=== PATIENT | female | born 1950 | race Caucasian/White ===

== ENCOUNTER → 2017-07-25 | Outpatient (CLI) | payer MEDICARE ==
--- NOTE | 2017-07-25 14:29 | XR ---
EXAMINATION TYPE: XR chest 2V DATE OF EXAM: 07/25/2017 COMPARISON: NONE HISTORY: COPD, J44.9 TECHNIQUE: Frontal and lateral views of the chest are obtained. FINDINGS: There is no focal air space opacity, pleural effusion, or pneumothorax seen. The cardiac silhouette size is within normal limits, size somewhat accentuated by rotation. Multilevel spondylo sis present within the thoracic spine. There may be a spinal curvature, patient is rotated. The osseo us structures are intact. IMPRESSION: No acute cardiopulmonary process.
== END | disposition home or self-care (01) ==
LOC: RADXRMAIN 12:44
PROVIDERS: ATTEND Family Medicine
DX: J44.9 Chronic obstructive pulmonary disease, unspecified (principal)
CPT/HCPCS: 71020

== ENCOUNTER → 2017-09-20 | Outpatient (CLI) | payer MEDICARE ==
--- NOTE | 2017-09-21 11:54 | MM ---
Reason for exam: screening (asymptomatic). Last mammogram was performed 1 year and 1 month ago. History: Patient is postmenopausal and history of other cancer. Family history of breast cancer in maternal cousin. Core biopsy of the right breast. Took hormonal contraceptives beginning at age 22. Physical Findings: A clinical breast exam by your physician is recommended on an annual basis and results should be correlated with mammographic findings. MG 3D Screening Mammo W/Cad Bilateral CC and MLO view(s) were taken. Prior study comparison: August 30, 2016, bilateral MG 3d screening mammo w/cad. November 04, 2014, bilateral MG screening mammo w CAD. The breast tissue is heterogeneously dense. This may lower the sensitivity of mammography. Previous mammotome biopsy in the right breast. No significant changes when compared with prior studies. ASSESSMENT: Benign, BI-RAD 2 RECOMMENDATION: Routine screening mammogram of both breasts in 1 year.
== END ==
LOC: RADMAMWWP 09:47
PROVIDERS: ATTEND Family Medicine
DX: Z12.31 Encounter for screening mammogram for malignant neoplasm of breast (principal)
CPT/HCPCS: 77063; G0202

== ENCOUNTER → 2017-10-11 | Outpatient (CLI) | payer MEDICARE ==
--- NOTE | 2017-10-11 19:26 | PN ---
PROGRESS NOTE DATE OF SERVICE: 10/11/2017. 67-year-old lady who has been [facility] for treatment of obstructive sleep apnea-hypopnea syndrome. Patient continued to use her CPAP equipment every night without significant problems related to mask, pressure or humidification. She sleeps better than before treatment with CPAP. [place] Sleepiness Scale today is 6. I checked CPAP unit. Usage for the last month is 28/30 nights, 23/30 nights more than 4 hours. Average usage 5.9 hours. Leak is 6 L/minute which is normal range. CPAP pressure is 11 cm of water. Apnea-hypopnea index is 7.0 with central apnea index 3.3, total apnea index 5.1. MEDICATIONS: Baby aspirin, glucosamine, calcium supplement, stool softener, vitamin D, fish oil. PHYSICAL EXAM: GENERAL Patient in no distress. VITAL SIGNS BP 190/94 on the right arm and on the left arm is 197/77, HR 74, RR 16, height 5 foot 3, weight 228, BMI 40.3, temperature 97.9, oxygen saturation on room air 96%. HEENT PERRLA, EOMI, evaluation of oropharynx showed extremely low position of soft palate. NECK Supple, no JVD. Thyroid is not palpable. LUNGS Clear to percussion and to auscultation. Good air exchange. No wheezing or rhonchi. HEART S1, S2 regular. No murmurs, gallops, or rubs. ABDOMEN Slightly obese. Soft and nontender. Bowel sounds are present. No organomegaly appreciated. EXTREMITIES No clubbing or cyanosis. 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 Cranial nerves 2 to 7 intact. There is no fasciculation or atrophy. noted. No focal deficits observed. IMPRESSION: 1. Obstructive sleep apnea-hypopnea syndrome. Patient demonstrated good compliance with treatment benefitting from treatment. 2. Mild obesity. Patient increased her weight about 4 pounds comparing to the previous visit. 3. History of hypertension, increased blood pressure today in the office. 4. History of bilateral knee arthritis. 5. Status post left knee arthroscopic surgery. 6. Right hip problems. 7. Status post surgical treatment for cataract bilaterally. PLAN: 1. Continue treatment with CPAP every night. 2. Losing weight. 3. Sleep hygiene with regular time in bed for at least 8 hours. 4. Low-sodium diet. 5. Follow up with primary care physician for monitoring of blood pressure. Thank you very much for allowing me to participate in management of your patient. Sincerely, Bharath Resendiz MD, PhD, FAASM Diplomat of [place] [employer] [place] [employer] [facility] [place] MIA / OTTO: [id number] /
== END ==
LOC: SLEEP 16:24
PROVIDERS: ATTEND Internal Medicine
DX: G47.33 Obstructive sleep apnea (adult) (pediatric) (principal); E66.9 Obesity, unspecified; I10 Essential (primary) hypertension; M17.0 Bilateral primary osteoarthritis of knee; Z98.890 Other specified postprocedural states; Z79.899 Other long term (current) drug therapy; Z79.82 Long term (current) use of aspirin

== ENCOUNTER → 2018-02-05 | Outpatient (CLI) | payer MEDICARE ==
--- NOTE | 2018-02-06 07:43 | CTL ---
EXAMINATION TYPE: CT Low Dose Lung DATE OF EXAM ORDERED: 02/05/2018 COMPARISON: None HISTORY: . Low Dose CT Lung Screening CT DLP: 131.[address] CTDI: 3.5 mGy IV CONTRAST USED: None. SCREENING VISIT: First visit COMPARISON: None. TECHNIQUE: Low dose computed tomography scan was performed through the chest at 1 millimeter thick sections and reconstructed images in the coronal plane at [address] DIAGNOSTIC QUALITY: Satisfactory FINDINGS: LUNG NODULES: Not presentLeft lung: no nodules identified.Right lung: no nodules identified. LUNGS: COPD: Severity: Mild Fibrosis: Severity: Mild basilar subpleural fibrosis. Lymph nodes: None Other findings: None RIGHT PLEURAL SPACE: Effusion: None Calcification: None Thickening: None Pneumothorax: None LEFT PLEURAL SPACE: Effusion: None Calcification: None Thickening: None Pneumothorax: None HEART: Heart Size: Mildly enlarged Coronary calcification: Mild Pericardial effusion: None OTHER FINDINGS: Upper abdomen: No significant abnormality Bony thorax: Degenerative changes Supraclavicular region: No significant abnormality Other: No significant abnormality IMPRESSION: No concerning pulmonary nodules identified. FOLLOW UP CT CHEST RECOMMENDATION: Follow-up screening in one year CT LUNG RAD: Negative LUNG RAD CATEGORY 1 MTDD
== END | disposition home or self-care (01) ==
LOC: RADCTMAIN 17:10
PROVIDERS: ATTEND Family Medicine
DX: Z09 Encounter for follow-up examination after completed treatment for conditions other than malignant neoplasm (principal); Z87.891 Personal history of nicotine dependence

== ENCOUNTER → 2018-09-18 | Outpatient (CLI) | payer MEDICARE ==
--- NOTE | 2018-09-18 11:54 | ECHOF ---
Referral Reason:R06.000 Dyspnea MEASUREMENTS -------- HEIGHT: 162.6 cm WEIGHT: 104.3 kg BP: 140/64 RVIDd: 2.8 cm (< 3.3) IVSd: 1.1 cm (0.6 - 1.1) LVIDd: 3.9 cm (3.9 - 5.3) LVPWd: 1.1 cm (0.6 - 1.1) IVSs: 1.6 cm LVIDs: 2.5 cm LVPWs: 1.5 cm LA Diam: 3.5 cm (2.7 - 3.8) LAESV Index (A-L): 30.60 ml/m Ao Diam: 3.3 cm (2.0 - 3.7) AV Cusp: 2.0 cm (1.5 - 2.6) MV EXCURSION: 15.965 mm (> 18.000) MV EF SLOPE: 28 mm/s (70 - 150) EPSS: 0.3 cm MV E Jacob: 0.65 m/s MV DecT: 319 ms MV A Jacob: 0.94 m/s MV E/A Ratio: 0.70 FINDINGS -------- Sinus rhythm. This was a technically good study. The left ventricular size is normal. There is borderline concentric left ventricular hypertrophy. Overall left ventricular systolic function is normal with, an EF between 50 - 60 % The right ventricle is normal in size. LA is midly dilated 29-33ml/m2. The right atrium is normal in size. There is mild aortic valve sclerosis. The mitral valve leaflets are mildly thickened. Mild mitral annular calcification present. The tricuspid valve appears structurally normal. There is no pulmonic regurgitation present. The aortic root size is normal. Normal inferior vena cava with normal inspiratory collapse consistent with estimated right atrial pre ssure of 5 mmHg. There is no pericardial effusion. CONCLUSIONS -------- 1. Sinus rhythm. 2. This was a technically good study. 3. The left ventricular size is normal. 4. There is borderline concentric left ventricular hypertrophy. 5. Overall left ventricular systolic function is normal with, an EF between 50 - 60 % 6. The right ventricle is normal in size. 7. LA is midly dilated 29-33ml/m2. 8. The right atrium is normal in size. 9. There is mild aortic valve sclerosis. 10. The mitral valve leaflets are mildly thickened. 11. Mild mitral annular calcification present. 12. The tricuspid valve appears structurally normal. 13. There is no pulmonic regurgitation present. 14. The aortic root size is normal. 15. Normal inferior vena cava with normal inspiratory collapse consistent with estimated right atrial pressure of 5 mmHg. 16. There is no pericardial effusion. SPECIAL WARFARE BOAT OPERATOR: Dayana Carlton RDCS
== END | disposition home or self-care (01) ==
LOC: RADECHMAIN 11:12
PROVIDERS: ATTEND Family Medicine
DX: I08.0 Rheumatic disorders of both mitral and aortic valves (principal)
CPT/HCPCS: 93306

== ENCOUNTER → 2018-09-24 | Outpatient (CLI) | payer MEDICARE ==
[2018-09-24 10:24] LABS: HCT 37.3 % (34.0-46.0); HGB 12.2 gm/dL (11.4-16.0); MCH 30.1 pg (25.0-35.0); MCHC 32.8 g/dL (31.0-37.0); MCV 91.8 fL (80.0-100.0); Mean Platelet Volume 6.4; Platelet Count 214 k/uL (150-450); RBC 4.07 m/uL (3.80-5.40); RDW 12.9 % (11.5-15.5); WBC 3.2 k/uL (3.8-10.6)
[2018-09-24 10:39] LABS: Albumin 3.8 g/dL (3.5-5.0); Appearance,Urine Clear (Clear); Bilirubin,Urine Negative (Negative); Blood,Urine Negative (Negative); Calcium 9.8 mg/dL (8.4-10.2); Color,Urine Light Yellow; Glucose,Urine (UA) Negative (Negative); Ketones,Urine Negative (Negative); Leukocyte Esterase,Urine Negative (Negative); Nitrite,Urine Negative (Negative); PH, Urine 5.5 (5.0-8.0); Potassium 4.4 mmol/L (3.5-5.1); Protein,Urine Negative (Negative); Specific Gravity,Urine 1.013 (1.001-1.035); Total Bilirubin 0.4 mg/dL (0.2-1.3); Total Protein 6.6 g/dL (6.3-8.2); Urobilinogen,Urine <2.0 mg/dL (<2.0)
--- NOTE | 2018-09-24 11:20 | BD ---
EXAMINATION TYPE: Axial Bone Density DATE OF EXAM: 09/24/2018 COMPARISON: NONE CLINICAL HISTORY: Postmenopausal female Height: 63 IN Weight: 233 LBS FRAX RISK QUESTIONS: Secondary Osteoporosis: 3. Menopause before 45: YES AGE 42 TOTAL HYSTERECTOMY RISK FACTORS HISTORY OF: Active: YES Diet low in dairy products/other sources of calcium: YES Postmenopausal woman: AGE 42 MEDICATIONS: Additional Medications: VIT D, CALCIUM, HIGH BLOOD PRESSURE MEDS, GLUCOSAMINE, BABY ASPIRIN, CBD OIL DROPS EXAM MEASUREMENTS: Bone mineral densitometry was performed using the [employer] System. Bone mineral density as measured about the Lumbar spine is: ----- L1-L4(G/cm2): 1.870 T Score Values are as follows: ----- L2: 3.7 ----- L3: 5.9 ----- L4: 7.9 ----- L1-L4: 5.7 Bone mineral density BASELINE Bone mineral density about the R hip (g/cm2): 1.431 Bone mineral density about the L hip (g/cm2): 1.510 T Score values are as follows: -----R Neck: 2.8 -----L Neck: 3.4 -----R Total: 2.9 -----L Total: 3.9 Bone mineral density BASELINE IMPRESSION: Normal (Values between +1 and -1 indicate normal bone mass). Consider repeating this study in 5 year s or sooner if there is some new clinical indication. NOTE: T-SCORE=SD OF THE YOUNG ADULT MEAN.
[2018-09-24 20:57] LABS: Hemoglobin A1C 5.9 % (4.0-6.0)
--- NOTE | 2018-09-25 14:16 | MM ---
Reason for exam: screening (asymptomatic). Last mammogram was performed 1 year ago. History: Patient is postmenopausal and history of other cancer. Family history of breast cancer in maternal cousin. Core biopsy of the right breast. Took hormonal contraceptives beginning at age 22. Physical Findings: A clinical breast exam by your physician is recommended on an annual basis and results should be correlated with mammographic findings. MG 3D Screening Mammo W/Cad Bilateral CC and MLO view(s) were taken. XCCL view(s) were taken of the right breast. Prior study comparison: September 20, 2017, bilateral MG 3d screening mammo w/cad. August 30, 2016, bilateral MG 3d screening mammo w/cad. The breast tissue is heterogeneously dense. This may lower the sensitivity of mammography. There are benign appearing round calcifications bilaterally. Previous mammotome biopsy in the right breast. There is no discrete abnormality. ASSESSMENT: Benign, BI-RAD 2 RECOMMENDATION: Routine screening mammogram of both breasts in 1 year.
== END | disposition home or self-care (01) ==
LOC: RADMAMWWP 09:00
PROVIDERS: ATTEND Family Medicine
DX: Z12.31 Encounter for screening mammogram for malignant neoplasm of breast (principal); I10 Essential (primary) hypertension; Z79.899 Other long term (current) drug therapy; Z78.0 Asymptomatic menopausal state
CPT/HCPCS: 36415; 77063; 77067; 77080; 80053; 80061; 81003; 83036; 83880; 84443; 85027

== ENCOUNTER → 2019-09-01 | Outpatient (CLI) | payer MEDICARE ==
--- NOTE | 2019-09-01 15:24 | CTL ---
EXAMINATION TYPE: CT Low Dose Lung DATE OF EXAM ORDERED: 09/01/2019 HISTORY: Personal tobacco use. Lung cancer screening CT DLP: 90.[address] CTDI: 2.4 mGy Automated exposure control for dose reduction was used. SCREENING VISIT: Subsequent follow-up COMPARISON: 02/05/2018 TECHNIQUE: Low dose computed tomography scan was performed through the chest at 1 mm thick sections a nd reconstructed images in the coronal plane at [address] DIAGNOSTIC QUALITY: Limited, but interpretable FINDINGS: LUNG NODULES: None. LUNGS: COPD: Severity: None Fibrosis: Severity: None Lymph nodes: Non- Other findings: None RIGHT PLEURAL SPACE: Effusion: None Calcification: None Thickening: None Pneumothorax: None LEFT PLEURAL SPACE: Effusion: None Calcification: None Thickening: None Pneumothorax: None HEART: Heart Size: Normal Coronary calcification: Moderate Pericardial effusion: None OTHER FINDINGS: Upper abdomen: Normal Bony thorax: Normal Supraclavicular region: Normal Other: Ascending thoracic aorta at the level the main pulmonary artery measures 3.6 cm. The main pul monary artery at the bifurcation measures 3.8 cm. IMPRESSION: 1. No suspicious interval change. 2. Mild prominence of the pulmonary artery relation to the aorta may be present. Correlate for pulmon natalie hypertension. FOLLOW UP CT CHEST RECOMMENDATION: CT of the low-dose chest CT LUNG RAD: 1
== END ==
LOC: RADCTMAIN 12:24
PROVIDERS: ATTEND Family Medicine
DX: Z12.2 Encounter for screening for malignant neoplasm of respiratory organs (principal); Z87.891 Personal history of nicotine dependence

== ENCOUNTER → 2019-09-25 | Outpatient (CLI) | payer MEDICARE ==
--- NOTE | 2019-09-26 10:47 | MM ---
Reason for exam: screening (asymptomatic). Last mammogram was performed 1 year ago. History: Patient is postmenopausal and history of other cancer. Family history of breast cancer in maternal cousin. Core biopsy of the right breast. Took hormonal contraceptives beginning at age 22. Physical Findings: A clinical breast exam by your physician is recommended on an annual basis and results should be correlated with mammographic findings. MG 3D Screening Mammo W/Cad Bilateral CC and MLO view(s) were taken. Prior study comparison: September 24, 2018, bilateral MG 3d screening mammo w/cad. September 20, 2017, bilateral MG 3d screening mammo w/cad. The breast tissue is heterogeneously dense. This may lower the sensitivity of mammography. Stable benign calcifications. There is no discrete abnormality. No significant changes when compared with prior studies. ASSESSMENT: Benign, BI-RAD 2 RECOMMENDATION: Routine screening mammogram of both breasts in 1 year.
== END | disposition home or self-care (01) ==
LOC: RADMAMWWP 10:38
PROVIDERS: ATTEND Family Medicine
DX: Z12.31 Encounter for screening mammogram for malignant neoplasm of breast (principal)
CPT/HCPCS: 77063; 77067

== ENCOUNTER 2020-05-03 20:15 | Emergency (ER) | payer MEDICARE ==
[2020-05-03 20:27] VITALS: RESP 18; TEMP 98.2
--- NOTE | 2020-05-03 21:10 | ED ---
Eye Problem HPI - General Chief complaint: Eye Problems Stated complaint: Eye Problems Time Seen by Provider: 05/03/20 20:34 Source: patient Mode of arrival: ambulatory Limitations: no limitations - History of Present Illness Initial comments: 70-year-old female presenting for changes in vision. Patient states around 6:30-7 PM this evening after raking leaves she developed a half-woodard reddish object in the middle of her vision hanging from the top. She states it became bigger and longer, changing and moving in shape/location. Denies focalized, fixe d deficit. Patient states she had no flashes of light. She states it didnt seem like a float,but almost was the color of blood. Ptient denies headache, vomiting, chest pain, palpatation, patient denies vision loss, denies experiencing this in the past. Denies halos around lights or blurred vision. patient states that the symptoms resolved shortly after and are not currently present. Patient denies weakness of the LE or UE, sensation deficits, speech changes or any other noted abnormalities/complaints. Patient's son is a PA and recommended she come to the ER for evaluation> Remaining ROS (-). - Related Data Allergies Allergy/AdvReac Type Severity Reaction Status Date / Time morphine Allergy Rash/Hives Verified 05/03/20 20:27 shellfish derived [Shellfish] Allergy Rash/Hives Verified 05/03/20 20:27 Review of Systems ROS Statement: Those systems with pertinent positive or pertinent negative responses have been documented in the HPI. ROS Other: All systems not noted in ROS Statement are negative. Past Medical History Past Medical History: COPD, Hypertension History of Any Multi-Drug Resistant Organisms: None Reported Past Surgical History: Bowel Resection, Section, Cholecystectomy, Hysterectomy Additional Past Surgical History / Comment(s): catarct surgery Past Psychological History: No Psychological Hx Reported Smoking Status: Former smoker Past Alcohol Use History: Occasional Past Drug Use History: None Reported General Exam - General Exam Comments Initial Comments: General: The patient is awake and alert, in no distress Eye: +3 mm pupils are equal, round and reactive to light, extra-ocular movements are intact. No APD. No nystagmus. There is normal conjunctiva bilaterally. No signs of icterus. IOP 9OD, 10 OS. Ears, nose, mouth and throat: There are moist mucous membranes and no oral lesions. Full fundus examination Limited secondary to no dilation however there is no noted acute abnormalities of the retina. No barrett red fovea noted. No obvious detachment. VF intact to confrontation. Neck: The neck is supple, there is no tenderness or JVD. Cardiovascular: There is a regular rate and rhythm. No murmur, rub or gallop is appreciated Musculoskeletal: Normal ROM, no tenderness. Strength 5/5. Sensation intact. Pulses equal bilaterally 2+. Neurological: A&O x 3. CN II-XII intact, memory intact to immediately, intermediate and intermediate school teacher recall. Able to follow simple verbal. Able to name a common object (pen). High quality, labial (pa) and lingual (la) speech. Low quality posterior pharynx/larynx (ga) voice sounds. Able to express general knowledge (days in a week). No hemineglect or inattention noted. Finger agnosia (-) and spatially oriented. Light touch sensation present over the face, chest, abdomen, back, UE bilaterally, and LE bilaterally. Able to localize point during point localization b/l and extinction. No visible bulk atrophy, hypertrophy, fasciculations, or myoclonus of the UE or LE b/l. Full PROM in UE and LE b/l. Bilateral muscle strength 5/5 for the following muscles: deltoid, biceps, triceps, brachioradialis, wrist extensors/flexor, hip flexor, hip abductors/adductors, hamstrings, quadriceps, feet dorsiflexors/plantar flexors. Finger to nose, finger to the examiners finger, and heel to sharp coordinated and accurate b/l. Coordinated and even demonstration of hand flip, finger to thumb b/. Gait is coordinated and even in stride. (-) Romberg. (-) pronator drift. Skin: Skin is warm and dry and no rashes or lesions are noted. Psychiatric: Cooperative, appropriate mood & affect, normal judgment. Limitations: no limitations Course Vital Signs 05/03/20 20:16 Temperature 98.2 F Pulse Rate 76 Respiratory 18 Rate Blood Pressure 167/96 O2 Sat by Pulse 97 Oximetry Medical Decision Making - Medical Decision Making 70-year-old female presenting for transient visual change. Half woodard red appearance, "hanging from top". resolved. Patient has no obvious retinal abnormalities on exam. Patient VA intact, similar b/l. VF intact. Patient has history of HTN. Patient IOP WNL. Patient has no history of trauma. Patient has normal neurological examination. Normal rate, regular rhythm on pulse exam. Patient case discussed with manager social responsibility microsoft bi developer Dr. Samson and Justin who both felt this was retinal in nature and since resolved warranted urgent f/u in office tomorrow morning. Patient is agreeable to care plan and is askign for discharge at this time. patient discharged appearing well, no current symptoms. Disposition Clinical Impression: Change in vision Disposition: HOME SELF-CARE Condition: Good Instructions (If sedation given, give patient instructions): Retinal Hemorrhage (ED) Additional Instructions: Please use medication as discussed. Please follow-up with Dr. Anderson tomorrow at 10AM. Please return to emergency room if the symptoms increase or worsen or for any other concerns. Is patient prescribed a controlled substance at d/c from ED?: No Referrals: Tracie Centeno MD [Primary Care Provider] - 1-2 days Mendez Samson MD [STAFF PHYSICIAN] - 1-2 days Time of Disposition: 22:07
[2020-05-03 22:16] VITALS: BP 145/88; PULSE 73
== END 2020-05-03 22:16 | disposition home or self-care (01) ==
LOC: EC 20:15
DX: H53.9 Unspecified visual disturbance (principal); Z88.5 Allergy status to narcotic agent; Z91.013 Allergy to seafood; Z87.891 Personal history of nicotine dependence; Z98.42 Cataract extraction status, left eye; Z98.41 Cataract extraction status, right eye
CPT/HCPCS: 99284

== ENCOUNTER → 2021-06-01 | Outpatient (CLI) | payer MEDICARE ==
--- NOTE | 2021-06-01 13:54 | CTL ---
EXAMINATION TYPE: CT Low Dose Lung DATE OF EXAM ORDERED: 06/01/2021 COMPARISON: 09/01/2019 HISTORY: . Low Dose CT Lung Screening CT DLP: [address] CTDI: 4.09 mGy IV CONTRAST USED: None. SCREENING VISIT: First visit COMPARISON: None. TECHNIQUE: Low dose computed tomography scan was performed through the chest at 1 millimeter thick se ctions and reconstructed images in the coronal plane at [address] DIAGNOSTIC QUALITY: Satisfactory FINDINGS: LUNG NODULES: Not presentLeft lung: no nodules identified.Right lung: no nodules identified. LUNGS: COPD: Severity: None Fibrosis: Severity:None Lymph nodes: None Other findings: None RIGHT PLEURAL SPACE: Effusion: None Calcification: None Thickening: None Pneumothorax: None LEFT PLEURAL SPACE: Effusion: None Calcification: None Thickening: None Pneumothorax: None HEART: Heart Size: Mildly enlarged Coronary calcification: Mild Pericardial effusion: None OTHER FINDINGS: Upper abdomen: No significant abnormality Bony thorax: Degenerative changes Supraclavicular region: No significant abnormalityOther: No significant abnormalityI IMPRESSION: No suspicious nodules seen. FOLLOW UP CT CHEST RECOMMENDATION: Follow-up screening in one year CT LUNG RAD: LUNG RAD CATEGORY 1 negative
--- NOTE | 2021-06-02 07:34 | BD ---
EXAMINATION TYPE: Axial Bone Density DATE OF EXAM: 06/01/2021 COMPARISON: 09.24.2018 CLINICAL HISTORY: 71 YR OLD FEMALE.....ICD-10 CODE: Z78.0 POST MENOPAUSAL Height: 62.4 Weight: 222 FRAX RISK QUESTIONS: Secondary Osteoporosis: YES 3. Menopause before 45: YES, AT AGE 42 Current Tobacco Use: QUIT 10-12 YRS AGO RISK FACTORS HISTORY OF: History of Wrist Fracture: LT HAND, <40 YRS OLD Postmenopausal woman: YES, AT AGE 42 YRS OLD, TOTAL HYST Take estrogen and/or progesterone medications: IN THE PAST FOR SHORT TIME Frequent falls: STOOPED, SEVERE BACK PAIN Hyperparathyroidism: NO Adrenal Insufficiency: NO MEDICATIONS: Additional Medications: TRAMADOL, BP MEDS, VITAMINS, VIT D, ASPIRIN, CALCIUM, DIET CONTROLLED DIABETI C, Additional History: BACK PAIN, HYPERTENSION, DIET CONTROLLED DIABETIC, EXAM MEASUREMENTS: Bone mineral densitometry was performed using the [email or web address] System. Bone mineral density as measured about the Lumbar spine is: ----- L1-L4(G/cm2): 1.812 T Score Values are as follows: ----- L1: 5.6 ----- L2: 2.3 ----- L3: 3.8 ----- L4: 8.2 ----- L1-L4: 5.3 Bone mineral density has: Decreased -4.5% since study of: 09.24.2018 Bone mineral density about the R hip (g/cm2): 1.491 Bone mineral density about the L hip (g/cm2): 1.590 T Score values are as follows: -----R Neck: 3.9 -----L Neck: 4.3 -----R Total: 3.8 -----L Total: 4.6 Bone mineral density has: Increased 7.6% since study of: 09.24.2018 FRAX%s: THERE IS A 4.8% CHANCE FOR A MAJOR OSTEOPOROTIC FX AND A 0.0% FOR HIP......PROBABILITY FOR FX IN 10 YRS TIME IMPRESSION: Normal bone mineral density. NOTE: T-SCORE=SD OF THE YOUNG ADULT MEAN.
--- NOTE | 2021-06-02 10:01 | MM ---
Reason for exam: screening (asymptomatic). Last mammogram was performed 1 year and 8 months ago. History: Patient is postmenopausal and history of other cancer. Family history of breast cancer in maternal cousin. Core biopsy of the right breast. Took hormonal contraceptives beginning at age 22. Physical Findings: A clinical breast exam by your physician is recommended on an annual basis and results should be correlated with mammographic findings. MG 3D Screening Mammo W/Cad Bilateral CC and MLO view(s) were taken. Prior study comparison: September 25, 2019, bilateral MG 3d screening mammo w/cad. September 24, 2018, bilateral MG 3d screening mammo w/cad. The breast tissue is heterogeneously dense. This may lower the sensitivity of mammography. Stable benign calcifications. There is no discrete abnormality. No significant changes when compared with prior studies. ASSESSMENT: Benign, BI-RAD 2 RECOMMENDATION: Routine screening mammogram of both breasts in 1 year.
== END | disposition home or self-care (01) ==
LOC: RADMAMWWP 12:35
PROVIDERS: ATTEND Family Medicine
DX: Z12.31 Encounter for screening mammogram for malignant neoplasm of breast (principal); Z78.0 Asymptomatic menopausal state; Z85.3 Personal history of malignant neoplasm of breast
CPT/HCPCS: 71271; 77063; 77067; 77080

== ENCOUNTER → 2022-06-28 | Outpatient (CLI) | payer MEDICARE ==
--- NOTE | 2022-06-28 14:58 | CTL ---
EXAMINATION TYPE: CT Low Dose Lung DATE OF EXAM ORDERED: 06/28/2022 HISTORY: Z87.891PERSONAL HISTORY OF NICOTINE DEPENDENCE . Lung cancer screening CT DLP: 90.[address] CTDI: 2.4 mGy Automated exposure control for dose reduction was used. SCREENING VISIT: Follow-up COMPARISON: CT CT Low Dose Lung 06/01/2021, 09/01/2019. TECHNIQUE: Low dose computed tomography scan was performed through the chest at 1 mm thick sections a nd reconstructed images in multiple planes at 1 mm and [address] DIAGNOSTIC QUALITY: Satisfactory FINDINGS: LUNG NODULES: Stable left apex 2 mm pulmonary nodule. No new or enlarging pulmonary nodules. LUNGS: COPD: Severity: None Fibrosis: Severity: Mild basilar subpleural fibrosis. Lymph nodes: None Other findings: None RIGHT PLEURAL SPACE: Effusion: None Calcification: None Thickening: None Pneumothorax: None LEFT PLEURAL SPACE: Effusion: None Calcification: None Thickening: None Pneumothorax: None HEART: Heart Size: Mildly Enlarged Coronary Calcification: Moderate Pericardial Effusion: None OTHER FINDINGS: Upper abdomen: None Bony thorax: Degenerative changes of visualized spine. Supraclavicular region: None Other: Mild pulmonary artery prominence measuring up to 3.4 cm. This can be seen setting of pulmonary arterial hypertension. IMPRESSION: Stable 2 mm left apex pulmonary nodule. No new or enlarging pulmonary nodules. CT LUNG RAD AND CT CHEST RECOMMENDATION: Lung-Rad 2 Benign Appearance or Behavior: Continue annual sc reening with LDCT in 12 months. S Modifier (other clinically significant findings): None
--- NOTE | 2022-06-29 18:50 | MM ---
Reason for Exam: Screening (asymptomatic). Last mammogram was performed 1 year(s) and 1 month(s) ago. Patient History: Menarche at age 12. First Full-Term at age 21. Left ovary removed at age 42. Right ovary removed at age 42. Hysterectomy at age 42. Postmenopausal. Patient has history of breast feeding. Other cancer. Hormonal Contraceptives, from age 22 until age 30. Core Biopsy on the Right side. Maternal cousin had breast cancer. Risk Values: Carissa 5 year model risk: 1.9%. NCI Lifetime model risk: 4.6%. Prior Study Comparison: 09/20/2017 Bilateral Screening Mammogram, [facility]. 09/24/2018 Bilateral Screening Mammogram, [facility]. 09/25/2019 Bilateral Screening Mammogram, [facility]. 06/01/2021 Bilateral Screening Mammogram, [facility]. Tissue Density: The breast tissue is heterogeneously dense. This may lower the sensitivity of mammography. Findings: Analyzed By CAD. Microclip right breast from prior biopsy. A few small benign renal cyst calcifications on both sides. Chronic nodularity posterior right MLO view suggesting a low axillary tail lymph node. No significant change from prior exams. Overall Assessment: Benign, BI-RAD 2 Management: Screening Mammogram of both breasts in 1 year. 1. Patient should continue monthly self breast exams. 2. A clinical breast exam by your physician is recommended on an annual basis. 3. This exam should not preclude additional follow-up of suspicious palpable abnormalities. Electronically signed and approved by: Thea Varela M.D. Radiologist
== END | disposition home or self-care (01) ==
LOC: RADMAMWWP 13:41
PROVIDERS: ATTEND Family Medicine
DX: Z12.31 Encounter for screening mammogram for malignant neoplasm of breast (principal); R91.1 Solitary pulmonary nodule; Z87.891 Personal history of nicotine dependence
CPT/HCPCS: 71271; 77063; 77067

== ENCOUNTER → 2023-03-09 | Outpatient (CLI) | payer MEDICARE ==
--- NOTE | 2023-03-12 06:09 | MR ---
MRI CERVICAL SPINE: CLINICAL HISTORY: Neck pain, back pain, limited movement for 3 to 5 years. Degenerative disc disease and spinal stenosis per order TECHNIQUE: Multiplanar, multisequence imaging of the cervical spine is performed without IV contrast. COMPARISON: None. FINDINGS: Sagittal images of the cervical spine show the craniocervical junction to appear within nor mal limits. The cervical and upper thoracic spinal cord is normal in course, caliber, and signal. V ertebral alignment is anatomic. The vertebral body heights are normal. Mild to moderate disc space narrowing and anterior spurring C5-C6 level. The bone marrow signal intensity is within normal limits . Axial images show C2-C3 level to appear within normal limits. Axial images at C3-C4 level show uncovertebral facet degenerative changes causing mild bilateral neur al foraminal narrowing. Axial images at C4-C5 level show uncovertebral facet degenerative changes causing mild to moderate ri ght-sided neural foraminal narrowing. Axial images at C5-C6 levels with posterior spur disc complex effacing anterior thecal sac nearly up to ventral surface of spinal cord with uncovertebral facet degenerative change greater on the right c ausing moderate left and severe right-sided neural foraminal narrowing. Axial images at C6-C7 level show lobulated paracentral disc protrusion effacing the anterolateral the katty sac bilaterally and causing moderate to advanced bilateral neural foraminal narrowing. Axial images at C7-T1 level appear within normal limits. IMPRESSION: Multilevel degenerative change greatest at C5-C6 and C6-C7 levels as detailed above.
== END | disposition home or self-care (01) ==
LOC: RADMRIMAIN 06:28
PROVIDERS: ATTEND Orthopaedic Surgery
DX: M47.812 Spondylosis without myelopathy or radiculopathy, cervical region (principal); M50.30 Other cervical disc degeneration, unspecified cervical region; M48.062 Spinal stenosis, lumbar region with neurogenic claudication; M51.36 Other intervertebral disc degeneration, lumbar region; M48.02 Spinal stenosis, cervical region
CPT/HCPCS: 72141

== ENCOUNTER → 2023-03-13 | Outpatient (CLI) | payer MEDICARE ==
--- NOTE | 2023-03-13 08:46 | MR ---
EXAMINATION TYPE: MR lumbar spine wo con DATE OF EXAM: 03/13/2023 COMPARISON: NONE HISTORY: Low back pain, ddd TECHNIQUE: Multiplanar, multisequence imaging of the lumbar spine is performed without IV contrast. FINDINGS: Levoconvex scoliosis centered at L3 level. Straightened alignment on sagittal images with s light grade 1 retrolisthesis L2 on L3 and L4 on L5 and grade 1 anterolisthesis of L3 on L4. Vertebral body heights are maintained. There is multilevel disc desiccation with multilevel moderate disc spac e narrowing and multilevel vacuum disc phenomenon along with moderate anterior spurring. The conus m edullaris is normal in position and signal ending at superior L1 level. Posterior disc herniation at T10-T11 level mildly effaces anterior thecal sac sagittal image 11. Osseous hemangioma involving the L1 vertebra noted. Axial images at T12-L1 level show mild broad disc bulge with focal left paracentral/foraminal disc pr otrusion effacing the anterolateral thecal sac and causing mild left greater than right anterior infe rior neural foraminal narrowing. Mild to moderate facet arthropathy bilaterally is seen. Axial images at L1-L2 level show mild broad disc bulge and facet arthropathy bilaterally. Spinal jad l is preserved. Axial images at L2-L3 level shows spondylolisthesis with mild/moderate broad disc bulge and mild/mode rate right greater than left facet arthropathy. There is right lateral disc protrusion component. The re is some effacement of the right anterior thecal sac. There is mild right-sided neural foraminal na rrowing. Axial images at L3-L4 level show spondylolisthesis with mild to moderate facet arthropathy. There is mild broad disc bulge with right lateral disc protrusion component. There is mild left and moderate t o severe right-sided neural foraminal narrowing. There is encroachment of the extraforaminal right L3 nerve sagittal image 13 and 14 and axial image 15. Axial images at L4-L5 level show moderate broad-based disc bulge effacing the anterior thecal sac estelle ng with moderate facet arthropathy bilaterally effacing the lateral thecal sac. There is mild bilater al neural foraminal narrowing. Axial images at the L5-S1 level shows moderate to advanced broad disc bulge and mild facet arthropath y. There is mild effacement anterior thecal sac. There is severe left and moderate right-sided neural foraminal narrowing. Encroachment along the inferior aspect of the right L5 nerve sagittal image 16 and 4 prominent effacement of the left L5 nerve sagittal image 4. The paraspinal muscle bulk is fairly well maintained. IMPRESSION: Slight scoliosis. Multilevel spondylolisthesis and degenerative change in the lumbar spin e as detailed above
== END | disposition home or self-care (01) ==
LOC: RADMRIMAIN 07:24
PROVIDERS: ATTEND Orthopaedic Surgery
DX: M48.062 Spinal stenosis, lumbar region with neurogenic claudication (principal); M51.36 Other intervertebral disc degeneration, lumbar region; M50.30 Other cervical disc degeneration, unspecified cervical region; M43.16 Spondylolisthesis, lumbar region; M41.86 Other forms of scoliosis, lumbar region
CPT/HCPCS: 72148

== ENCOUNTER → 2023-03-28 | Outpatient (CLI) | payer MEDICARE ==
--- NOTE | 2023-03-28 11:59 | P.SLEEP ---
History of Present Illness DATE: 03/28/2023 CONSULTATION/NEW PATIENT EVALUATION HISTORY OF PRESENT ILLNESS/SLEEP-WAKE EVALUATION: 73-year-old lady had been re evaluated in the sleep center for obstructive sleep apnea hypopnea syndrome. Last time I so patient in 02/19/2016. She was diagnosed with obstructive sleep apnea by home sleep apnea test which showed apnea-hypopnea index 39.7. She was successfully treated with CPAP. Patient used CPAP full this years and received new CPAP unit recently. I checked CPAP unit pressure 11 cm of water usage is 97% of nights and 90% more than 4 hours average 6 hours 22 minutes, which indicate great compliance. Apnea-hypopnea index increased to 10.3 and that include central apnea index 8.0. Leak is height 77.5 L/m. SLEEP SCHEDULE: Usually sleep schedule from 11 PM to 6 -7 AM. FALLING ASLEEP: Usually no significant problems with the falling asleep, no TV in bedroom. DURING SLEEP: Patient sleeps on the back and side position. According to family she may snore while using CPAP. No history of hypnogogical hallucinations, sleep paralysis, or cataplexy. DURING THE DAY/WAKE STATE: Patient may fill sleepiness during the day especially watching TV. [place] sleepiness scale is 8. Patient usually doesn't take any scheduled naps. PAST MEDICAL HISTORY: Hypertension, back problems. PAST SURGICAL HISTORY: Cholecystectomy, hysterectomy, colon resection for diverticulitis, , left knee arthroscopic surgery. MEDICATIONS: Tramadol, medication for blood pressure patient doesn't remember the name. SOCIAL HISTORY: Negative for smoking or using alcohol. FAMILY HISTORY: Hypertension, heart problems, skin cancer, diabetes. REVIEW OF SYSTEMS: Snoring even when patient using CPAP. No fevers. No double vision. No recent chest pain. No shortness of breath. No abdominal pain. No bleeding episodes. No blood in urine. No seizure episodes. PHYSICAL EXAMINATION: GENERAL: A pleasant patient without any distress. VITAL SIGNS: BP 166/64, HR 94, RR 16, weight to 19.8 pounds, height 5 foot 2.5 inches, body mass index 39.5. HEENT: PERRLA, EOMI. Evaluation of oropharynx showed tongue protrudes midline, low position of soft palate Mallampati 4. NECK: Supple. No JVD. Thyroid is not palpable. 18.5 inches in circumference. LUNGS: Clear to percussion and to auscultation. Good air exchange. No wheezing or rhonchi. HEART: S1, S2 regular. No murmurs, gallops or rubs. ABDOMEN: Soft and nontender. Bowel sounds are present. No organomegaly appreciated. EXTREMITIES: No clubbing or cyanosis. 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 Cranial nerves 2 to 7 intact. There is no fasciculation or atrophy noted. No focal deficits observed. I teach patient how to adjust humidity level. Parameters was changed to manual humidity adjustments. Temperature in humidifier was reduced to level of 3. ASSESSMENT: 1. Obstructive sleep apnea hypopnea syndrome in severe range by results of home sleep apnea test in 2016. Patient demonstrated great compliance with treatment, benefiting from treatment. Apnea-hypopnea index slightly increased and include several central apneas noted enough water in humidifier for the whole night. 2. Obesity, BMI 39.5. 3. Hypertension. 4. Status post colon resection for diverticulitis. 5 back problems. 6 . Status post left knee arthroscopic surgery. 7. Status post cholecystectomy. 8. Status post hysterectomy. PLAN: 1. I changed regimen of CPAP unit to AutoPAP 5-13 centimeters of water. 2. Patient will continue to use CPAP equipment every night for the whole night 3. Preferable position during sleep on the side. 4. No driving if patient feels any sleepiness. Patient is aware of civil and criminal liability for unsafe driving. 5. Sleep hygiene with regular sleep time for at least 7.5-8 hours. 6. Watching and losing weight. 7. Prescription for all necessary supplies. 8. Follow-up visit in 2 months to check clinical response on changing CPAP pressure. Thank you very much for referring this patient for consultation. Sincerely, Bharath Resendiz MD, PhD, FAASM. Diplomat of [place] [employer], Sleep Medicine Board by [place] [employer]ities [place] [employer] Marketing Designer of [facility] [place] Past Medical History Past Medical History: COPD, Hypertension History of Any Multi-Drug Resistant Organisms: None Reported Past Surgical History: Bowel Resection, Section, Cholecystectomy, Hysterectomy Additional Past Surgical History / Comment(s): catarct surgery Past Anesthesia/Blood Transfusion Reactions: No Reported Reaction Past Psychological History: No Psychological Hx Reported Smoking Status: Former smoker Past Alcohol Use History: Occasional Past Drug Use History: None Reported Medications and Allergies Allergies Allergy/AdvReac Type Severity Reaction Status Date / Time morphine Allergy Rash/Hives Verified 08/05/20 12:47 shellfish derived [Shellfish] Allergy Rash/Hives Verified 08/05/20 12:47 Sleep Note - Sleep Note Sleep Note: Temperature: Pulse Rate: Respiratory Rate: Blood Pressure: SpO2: Height: Weight: BMI: Neck Circumference:
== END ==
LOC: SLEEP 10:59
PROVIDERS: ATTEND Internal Medicine
DX: G47.33 Obstructive sleep apnea (adult) (pediatric) (principal); E66.9 Obesity, unspecified; Z68.39 Body mass index [BMI] 39.0-39.9, adult; M54.9 Dorsalgia, unspecified; Z98.890 Other specified postprocedural states; Z99.89 Dependence on other enabling machines and devices; Z96.652 Presence of left artificial knee joint; Z88.5 Allergy status to narcotic agent; Z91.013 Allergy to seafood; Z87.891 Personal history of nicotine dependence
CPT/HCPCS: 99211

== ENCOUNTER 2023-08-28 00:06 | Observation (INO) | payer MEDICARE ==
--- NOTE | 2023-08-28 00:25 | ED ---
General Adult HPI <Jamison Kay - Last Filed: 08/28/23 08:15> - General Source: patient, RN notes reviewed Mode of arrival: wheelchair Limitations: no limitations <Deneen Magaña - Last Filed: 08/28/23 20:12> - General Chief complaint: Shortness of Breath Stated complaint: Difficulty Breathing Time Seen by Provider: 08/28/23 00:24 - History of Present Illness Initial comments: 73-year-old female with past medical history significant for COPD presents to the nearest emergency department with a chief complaint of worsening shortness of breath. Patient reports shortness of breath at rest. She reports that it is a sharp pain when she tries to take a deep breath. She localizes the pain in the left lower chest/flank. She denies any productive cough or fevers. Denies any trauma or injury. Patient reports she has seen Dr. loja of follow-up which she reports has been going well. Patient reports having a surgery on her lumbar spine in May 2023. She reports that she has been diagnosed with MRSA in the recent weeks with recent hospitalizations. (Deneen Magaña) - Related Data Home Medications Medication Instructions Recorded Confirmed DAPTOmycin [Cubicin] 400 mg IV HS 08/28/23 08/28/23 Docusate [Colace] 100 mg PO BID 08/28/23 08/28/23 hydroCHLOROthiazide 12.5 mg PO DAILY 08/28/23 08/28/23 lisinopriL [Zestril] 5 mg PO DAILY 08/28/23 08/28/23 polyethylene glycoL 3350 [Miralax] 8.5 gm PO DAILY 08/28/23 08/28/23 traMADol HCL 50 mg PO Q4H 08/28/23 08/28/23 Allergies Allergy/AdvReac Type Severity Reaction Status Date / Time morphine Allergy Rash/Hives Verified 08/28/23 08:41 shellfish derived [Shellfish] Allergy Rash/Hives Verified 08/28/23 08:41 Review of Systems ROS Other: All systems not noted in ROS Statement are negative. <Jamison Kay - Last Filed: 08/28/23 08:15> ROS Other: All systems not noted in ROS Statement are negative. <Deenen Magaña - Last Filed: 08/28/23 20:12> ROS Statement: Those systems with pertinent positive or pertinent negative responses have been documented in the HPI. Past Medical History Past Medical History: COPD, Hypertension History of Any Multi-Drug Resistant Organisms: MRSA Date of last positivie culture/infection: 05/12/23 MDRO Source:: Back Past Surgical History: Bowel Resection, Section, Cholecystectomy, Hysterectomy, Orthopedic Surgery Additional Past Surgical History / Comment(s): catarct surgery Past Anesthesia/Blood Transfusion Reactions: No Reported Reaction Past Psychological History: No Psychological Hx Reported Smoking Status: Former smoker Past Alcohol Use History: Occasional Past Drug Use History: None Reported <Denene Magaña - Last Filed: 08/28/23 20:12> General Exam Limitations: no limitations <Deneen Magaña - Last Filed: 08/28/23 20:12> - General Exam Comments Initial Comments: Visual Physical Exam Vital signs reviewed General: Well-appearing, nontoxic, no acute distress. Head: Normocephalic, atraumatic Eyes: PERRLA, EOMI ENT: Airway patent Chest: Nonlabored breathing Skin: No visual rash, normal skin tone Neuro: Alert and oriented 3 Musculoskeletal: No gross abnormalities I performed the quick note portion of this exam, verbal signature Deneen Magaña PA-C General: Alert, in no acute distress Head: atraumatic normocephalic. Eyes PERRL, EOMI intact, mucous membranes moist Respiratory: Lungs clear to auscultation bilaterally Cardiovascular: Heart rate regular rate and rhythm Abdominal: Soft without guarding or rebound Extremities: Normal inspection with full range of motion and normal capillary refill Neuroogic: alert and oriented 3, CN II-XII intact, able to ambulate with steady gait Skin: warm dry and intact with normal color (Deneen Magaña) Course <Deneen Magaña - Last Filed: 08/28/23 20:12> Vital Signs 08/28/23 08/28/23 08/28/23 00:13 02:53 05:00 Temperature 98.9 F Pulse Rate 78 84 93 Respiratory 18 19 18 Rate Blood Pressure 115/57 111/73 115/75 O2 Sat by Pulse 100 98 97 Oximetry 08/28/23 08/28/23 08/28/23 07:45 10:28 12:43 Temperature 98.5 F 97.9 F 97.9 F Pulse Rate 89 98 86 Respiratory 18 20 18 Rate Blood Pressure 109/70 143/73 135/67 O2 Sat by Pulse 99 98 97 Oximetry 08/28/23 08/28/23 15:40 18:24 Temperature 98.0 F 98.2 F Pulse Rate 85 95 Respiratory 17 18 Rate Blood Pressure 112/51 109/52 O2 Sat by Pulse 97 96 Oximetry - Reevaluation(s) Reevaluation #1: 08/28/23 03:21 Patient had complete history and physical exam performed after placement in ER bed 33. Additional orders placed. (Deneen Magaña) Reevaluation #2: 08/28/23 03:47 Patient signed out to Dr. Stearns P who assumes care of the patient (Deneen Magaña) Medical Decision Making - Lab Data Result diagrams: 08/28/23 00:29 08/28/23 00:29 <Jamison Kay - Last Filed: 08/28/23 08:15> - Lab Data Result diagrams: 08/28/23 00:29 08/28/23 00:29 <Deneen Magaña - Last Filed: 08/28/23 20:12> - Medical Decision Making CT angiography was reviewed, showing bilateral pulmonary emboli without signs of right heart strain. Troponin is negative 2. Patient is started on high-dose heparin and admitted to internal medicine. Case discussed with [facility]. Critical care: 35 minutes (Jamison Kay) Was pt. sent in by a medical professional or institution (, [facility], [facility], urgent care, hospital, or care home...) When possible be specific @ -[No] Did you speak to anyone other than the patient for history (EMS, parent, family, police, friend...)? What history was obtained from this source @ -[No] Did you review nursing and triage notes (agree or disagree)? Why? @ -[I reviewed and agree with nursing and triage notes] Were old charts reviewed (outside hosp., previous admission, EMS record, old EKG, old radiological studies, urgent care reports/EKG's, care home records)? Report findings @ -[No old charts were reviewed] Differential Diagnosis (chest pain, altered mental status, abdominal pain women, abdominal pain men, vaginal bleeding, weakness, fever, dyspnea, syncope, headache, dizziness, GI bleed, back pain, seizure, CVA, palpatations, mental health, musculoskeletal)? @ -[not applicable] EKG interpreted by me (3pts min.). @ -[As above] X-rays interpreted by me (1pt min.). @ -[None done] CT interpreted by me (1pt min.). @ -[None done] U/S interpreted by me (1pt. min.). @ -[None done] What testing was considered but not performed or refused? (CT, X-rays, U/S, labs)? Why? @ -[None] What meds were considered but not given or refused? Why? @ -[None] Did you discuss the management of the patient with other professionals (professionals i.e. , PA, [facility], lab, RT, psych nurse, director social welfare, showcase trimmer, teacher, public health officer, special education case manager)? Give summary @ -[No] Was smoking cessation discussed for >3mins.? @ -[No] Was critical care preformed (if so, how long)? @ -[No] Were there social determinants of health that impacted care today? How? (Homel essness, low income, unemployed, alcoholism, drug addiction, transportation, low edu. Level, literacy, decrease access to med. care, [facility], rehab)? @ -[No] Was there de-escalation of care discussed even if they declined (Discuss DNR or withdrawal of care, Hospice)? DNR status @ -[No] What co-morbidities impacted this encounter? (DM, HTN, Smoking, COPD, CAD, Cancer, CVA, ARF, Chemo, Hep., AIDS, mental health diagnosis, sleep apnea, morbid obesity)? @ -[None] Was patient admitted / discharged? Hospital course, mention meds given and route, prescriptions, significant lab abnormalities, going to OR and other pertinent info. @ -Disposition pending. This is 73-year-old female presents the emergency department with shortness of breath. Patient had a thorough history and physical exam performed. Physical exam essentially unremarkable. Vital signs stable upon evaluation. Heart rate regular rate and rhythm, lungs clear to auscultation bilaterally abdomen soft nontender. Patient laboratory studies which revealed CBC 0.0, hemoglobin 11.1 coags unr emarkable CMP unremarkable initial troponin negative Covid or influenza RSV negative. Patient will be signed out to Dr. Stearns pending additional laboratory studies and x-ray results. (Deneen Magaña) - Lab Data Lab Results 08/28/23 08/28/23 08/28/23 Range/Units 00:29 00:29 00:29 WBC 8.0 (3.8-10.6) k/uL RBC 3.84 (3.80-5.40) m/uL Hgb 11.1 L (11.4-16.0) gm/dL Hct 33.1 L (34.0-46.0) % MCV 86.2 (80.0-100.0) fL MCH 28.9 (25.0-35.0) pg MCHC 33.5 (31.0-37.0) g/dL RDW 12.9 (11.5-15.5) % Plt Count 238 (150-450) k/uL MPV 6.7 Neutrophils % 69 % Lymphocytes % 20 % Monocytes % 6 % Eosinophils % 3 % Basophils % 1 % Neutrophils # 5.5 (1.3-7.7) k/uL Lymphocytes # 1.6 (1.0-4.8) k/uL Monocytes # 0.5 (0-1.0) k/uL Eosinophils # 0.2 (0-0.7) k/uL Basophils # 0.0 (0-0.2) k/uL PT 10.4 (10.0-12.5) sec INR 0.9 (<1.2) APTT 24.7 (22.0-30.0) sec D-Dimer (<0.60) mg/L FEU Sodium 136 L (137-145) mmol/L Potassium 3.9 (3.5-5.1) mmol/L Chloride 101 (98-107) mmol/L Carbon Dioxide 24 (22-30) mmol/L Anion Gap 11 mmol/L BUN 14 (7-17) mg/dL Creatinine 0.82 (0.52-1.04) mg/dL Est GFR (CKD-EPI)AfAm 82 (>60 ml/min/1.73 sqM) Est GFR (CKD-EPI)NonAf 71 (>60 ml/min/1.73 sqM) Glucose 147 H (74-99) mg/dL Calcium 10.0 (8.4-10.2) mg/dL Total Bilirubin 0.7 (0.2-1.3) mg/dL AST 22 (14-36) U/L ALT 15 (4-34) U/L Alkaline Phosphatase 87 (38-126) U/L Troponin I (0.000-0.034) ng/mL NT-Pro-B Natriuret Pep pg/mL Total Protein 7.1 (6.3-8.2) g/dL Albumin 4.0 (3.5-5.0) g/dL Urine Color Urine Appearance (Clear) Urine pH (5.0-8.0) Ur Specific [place] (1.001-1.035) Urine Protein (Negative) Urine Glucose (UA) (Negative) Urine Ketones (Negative) Urine Blood (Negative) Urine Nitrite (Negative) Urine Bilirubin (Negative) Urine Urobilinogen (<2.0) mg/dL Ur Leukocyte Esterase (Negative) Urine RBC (0-5) /hpf Urine WBC (0-5) /hpf Ur Squamous Epith Cells (0-4) /hpf Urine Bacteria (None) /hpf Hyaline Casts (0-2) /lpf Urine Mucus (None) /hpf Influenza Type A (PCR) (Not Detectd) Influenza Type B (PCR) (Not Detectd) RSV (PCR) (Not Detectd) SARS-CoV-2 (PCR) (Not Detectd) 08/28/23 08/28/23 08/28/23 Range/Units 00:29 00:29 00:29 WBC (3.8-10.6) k/uL RBC (3.80-5.40) m/uL Hgb (11.4-16.0) gm/dL Hct (34.0-46.0) % MCV (80.0-100.0) fL MCH (25.0-35.0) pg MCHC (31.0-37.0) g/dL RDW (11.5-15.5) % Plt Count (150-450) k/uL MPV Neutrophils % % Lymphocytes % % Monocytes % % Eosinophils % % Basophils % % Neutrophils # (1.3-7.7) k/uL Lymphocytes # (1.0-4.8) k/uL Monocytes # (0-1.0) k/uL Eosinophils # (0-0.7) k/uL Basophils # (0-0.2) k/uL PT (10.0-12.5) sec INR (<1.2) APTT (22.0-30.0) sec D-Dimer 13.14 H (<0.60) mg/L FEU Sodium (137-145) mmol/L Potassium (3.5-5.1) mmol/L Chloride (98-107) mmol/L Carbon Dioxide (22-30) mmol/L Anion Gap mmol/L BUN (7-17) mg/dL Creatinine (0.52-1.04) mg/dL Est GFR (CKD-EPI)AfAm (>60 ml/min/1.73 sqM) Est GFR (CKD-EPI)NonAf (>60 ml/min/1.73 sqM) Glucose (74-99) mg/dL Calcium (8.4-10.2) mg/dL Total Bilirubin (0.2-1.3) mg/dL AST (14-36) U/L ALT (4-34) U/L Alkaline Phosphatase (38-126) U/L Troponin I <0.012 (0.000-0.034) ng/mL NT-Pro-B Natriuret Pep pg/mL Total Protein (6.3-8.2) g/dL Albumin (3.5-5.0) g/dL Urine Color Urine Appearance (Clear) Urine pH (5.0-8.0) Ur Specific [place] (1.001-1.035) Urine Protein (Negative) Urine Glucose (UA) (Negative) Urine Ketones (Negative) Urine Blood (Negative) Urine Nitrite (Negative) Urine Bilirubin (Negative) Urine Urobilinogen (<2.0) mg/dL Ur Leukocyte Esterase (Negative) Urine RBC (0-5) /hpf Urine WBC (0-5) /hpf Ur Squamous Epith Cells (0-4) /hpf Urine Bacteria (None) /hpf Hyaline Casts (0-2) /lpf Urine Mucus (None) /hpf Influenza Type A (PCR) Not Detected (Not Detectd) Influenza Type B (PCR) Not Detected (Not Detectd) RSV (PCR) Not Detected (Not Detectd) SARS-CoV-2 (PCR) Not Detected (Not Detectd) 08/28/23 08/28/2308/28/23 Range/Units 03:23 03:50 03:50 WBC (3.8-10.6) k/uL RBC (3.80-5.40) m/uL Hgb (11.4-16.0) gm/dL Hct (34.0-46.0) % MCV (80.0-100.0) fL MCH (25.0-35.0) pg MCHC (31.0-37.0) g/dL RDW (11.5-15.5) % Plt Count (150-450) k/uL MPV Neutrophils % % Lymphocytes % % Monocytes % % Eosinophils % % Basophils % % Neutrophils # (1.3-7.7) k/uL Lymphocytes # (1.0-4.8) k/uL Monocytes # (0-1.0) k/uL Eosinophils # (0-0.7) k/uL Basophils # (0-0.2) k/uL PT (10.0-12.5) sec INR (<1.2) APTT (22.0-30.0) sec D-Dimer (<0.60) mg/L FEU Sodium (137-145) mmol/L Potassium (3.5-5.1) mmol/L Chloride (98-107) mmol/L Carbon Dioxide (22-30) mmol/L Anion Gap mmol/L BUN (7-17) mg/dL Creatinine (0.52-1.04) mg/dL Est GFR (CKD-EPI)AfAm (>60 ml/min/1.73 sqM) Est GFR (CKD-EPI)NonAf (>60 ml/min/1.73 sqM) Glucose (74-99) mg/dL Calcium (8.4-10.2) mg/dL Total Bilirubin (0.2-1.3) mg/dL AST (14-36) U/L ALT (4-34) U/L Alkaline Phosphatase (38-126) U/L Troponin I <0.012 (0.000-0.034) ng/mL NT-Pro-B Natriuret Pep 86 pg/mL Total Protein (6.3-8.2) g/dL Albumin (3.5-5.0) g/dL Urine Color Yellow Urine Appearance Clear (Clear) Urine pH 5.5 (5.0-8.0) Ur Specific [place] 1.021 (1.001-1.035) Urine Protein Trace H (Negative) Urine Glucose (UA) Negative (Negative) Urine Ketones Negative (Negative) Urine Blood Negative (Negative) Urine Nitrite Negative (Negative) Urine Bilirubin Negative (Negative) Urine Urobilinogen <2.0 (<2.0) mg/dL Ur Leukocyte Esterase Trace H (Negative) Urine RBC 1 (0-5) /hpf Urine WBC 5 (0-5) /hpf Ur Squamous Epith Cells 4 (0-4) /hpf Urine Bacteria Rare H (None) /hpf Hyaline Casts 8 H (0-2) /lpf Urine Mucus Occasional H (None) /hpf Influenza Type A (PCR) (Not Detectd) Influenza Type B (PCR) (Not Detectd) RSV (PCR) (Not Detectd) SARS-CoV-2 (PCR) (Not Detectd) Critical Care Time Critical Care Time: Yes Total Critical Care Time: 35 <Jamison Kay - Last Filed: 08/28/23 08:15> Disposition Is patient prescribed a controlled substance at d/c from ED?: No Time of Disposition: 08:16 <Jamison Kay - Last Filed: 08/28/23 08:15> <Deneen Magaña - Last Filed: 08/28/23 20:12> Clinical Impression: Bilateral pulmonary embolism Disposition: ADMITTED IP TO THIS HOSP Condition: Stable
[2023-08-28 00:47] LABS: Basophils % (A) 1 %; Eosinophils # (A) 0.2 k/uL (0-0.7); Eosinophils % (A) 3 %; HCT 33.1 % (34.0-46.0); HGB 11.1 gm/dL (11.4-16.0); Lymphocytes # (A) 1.6 k/uL (1.0-4.8); Lymphocytes % (A) 20 %; MCH 28.9 pg (25.0-35.0); MCHC 33.5 g/dL (31.0-37.0); MCV 86.2 fL (80.0-100.0); Mean Platelet Volume 6.7; Monocytes # (A) 0.5 k/uL (0-1.0); Monocytes % (A) 6 %; Neutrophils # (A) 5.5 k/uL (1.3-7.7); Neutrophils % (A) 69 %; Platelet Count 238 k/uL (150-450); RBC 3.84 m/uL (3.80-5.40); RDW 12.9 % (11.5-15.5)
[2023-08-28 00:55] LABS: ALT 15 U/L (4-34); AST 22 U/L (14-36); African American GFR (CKD) 82 (>60 ml/min/1.73 sqM); Alkaline Phosphatase 87 U/L (38-126); Anion Gap 11 mmol/L; Blood Urea Nitrogen 14 mg/dL (7-17); Carbon Dioxide 24 mmol/L (22-30); Chloride 101 mmol/L (98-107); Glucose 147 mg/dL (74-99); Non-African American GFR(CKD) 71 (>60 ml/min/1.73 sqM); Potassium 3.9 mmol/L (3.5-5.1); Sodium 136 mmol/L (137-145); Total Bilirubin 0.7 mg/dL (0.2-1.3); Total Protein 7.1 g/dL (6.3-8.2)
[2023-08-28 01:02] LABS: INR 0.9 (<1.2); Partial Thromboplastin Time 24.7 sec (22.0-30.0); Prothrombin Time 10.4 sec (10.0-12.5)
--- NOTE | 2023-08-28 03:47 | XR ---
EXAM: XR Chest, 2 Views CLINICAL HISTORY: ITS.REASON XR Reason: SOB TECHNIQUE: Frontal and lateral views of the chest. COMPARISON: No relevant prior studies available. FINDINGS: Lungs: No consolidation or mass. Pleural space: No effusion. Heart: No cardiomegaly. Bones/joints: No acute findings. IMPRESSION: No acute cardiopulmonary process.
[2023-08-28 04:15] LABS: Appearance,Urine Clear (Clear); Bacteria,Urine Rare /hpf; Bilirubin,Urine Negative (Negative); Blood,Urine Negative (Negative); Color,Urine Yellow; Glucose,Urine (UA) Negative (Negative); Hyaline Casts,Urine 8 /lpf (0-2); Ketones,Urine Negative (Negative); Leukocyte Esterase,Urine Trace (Negative); Mucus,Urine Occasional /hpf; Nitrite,Urine Negative (Negative); PH, Urine 5.5 (5.0-8.0); Protein,Urine Trace (Negative); RBC,Urine 1 /hpf (0-5); Specific Gravity,Urine 1.021 (1.001-1.035); Squamous Epithelial Cell,Urine 4 /hpf (0-4); Urobilinogen,Urine <2.0 mg/dL (<2.0); WBC,Urine 5 /hpf (0-5)
--- NOTE | 2023-08-28 08:06 | CT ---
EXAMINATION TYPE: CT chest angio for PE CT DLP: 463.2 mGycm, Automated exposure control for dose reduction was used. DATE OF EXAM: 08/28/2023 4:49 AM COMPARISON: Chest radiograph 08/28/2023, CT low-dose lung 06/28/2022 CLINICAL INDICATION:Female, 73 years old with history of sob, pleuritic pain; TECHNIQUE/CONTRAST: CTA scan of the thorax is performed with IV Contrast, patient injected with 70 mL of Isovue 370, pulm onary embolism protocol. MIP images are created and reviewed. FINDINGS: Pulmonary Artery: Multiple filling defects identified within the bilateral segmental and subsegmental pulmonary arteries. This involves the right middle and lower lobes and left upper and lower lobes. D ilated measuring 3.9 cm in diameter. No reflux of contrast in the IVC. Lungs/Pleura: No evidence of focal consolidation, pleural effusion or pneumothorax. Airway: Large airways are patent. Heart: Mildly prominent in size. No pericardial effusion. No intraventricular septal bowing. Mild cor onary artery calcifications. Vasculature: No evidence of aortic aneurysm. Right PICC line identified with distal tip terminating i n the high SVC. Mediastinum: No evidence of adenopathy. Musculoskeletal: No acute osseous abnormalities. Multilevel degenerative changes of the visualized sp ine. Lumbar fusion hardware demonstrated on the cab worker radiograph. Soft Tissues: Midline posterior lower back skin guru identified with a subcutaneous fluid collecti on measuring 2.4 x 1.9 cm. No internal gas. Lower neck: No significant findings. Upper Abdomen: No significant findings. IMPRESSION: 1. Bilateral segmental and subsegmental pulmonary emboli. No CT evidence for right heart strain. 2. Midline posterior lower back skin guru with a 2.4 cm fluid collection which may represent a ser diaz. Abscess is not entirely excluded. 3. Dilated main pulmonary artery which can be seen setting of pulmonary arterial hypertension. Findings called to and discussed with ER physician at 8:02 AM on 08/28/2023.
[2023-08-28] MEDS ORDERED: HEPARIN SODIUM 1,000 UN/ML (10ML VL) IV PRN (08:14)
[2023-08-28] MEDS ORDERED: NALOXONE 0.4 MG/ML 1 ML VIAL IV PRN (08:14)
[2023-08-28] MEDS ORDERED: HEPARIN SODIUM 1,000 UN/ML (10ML VL) IV ONE (08:14)
[2023-08-28] MEDS: HEPARIN SOD,PORK IN 0.45% NACL 25,000 UNIT in 0.45% NACL 1 250ML.BAG IV SCH (08:46)
[2023-08-28] MEDS ORDERED: polyethylene glycoL 3350 17 GM POWD.PACK PO PRN (10:09)
--- NOTE | 2023-08-28 10:21 | P.HPIM ---
History of Present Illness 73-year-old pleasant female came in with complaints of shortness of breath and pleuritic chest pain found to have a subsegmental bilateral pulmonary embolism. Patient had a back surgery 6 months ago which was complicated by infection presently and daptomycin which she will finish by next Sunday. Patient's guru other supposed to come out this Sunday. Patient states she's been ambulating after the procedure. Although still have severe pain. Patient's troponin is not elevated although CT is concerning for possible pulmonary hypertension, echo cardiac exam is being obtained. REVIEW OF SYSTEMS: CONSTITUTIONAL: No fever, no malaise, no fatigue. HEENT: No recent visual problems or hearing problems. Denied any sore throat. CARDIOVASCULAR: No orthopnea, PND, no palpitations, no syncope. PULMONARY: no cough, no hemoptysis. GASTROINTESTINAL: No diarrhea, no nausea, no vomiting, no abdominal pain. NEUROLOGICAL: No headaches, no weakness, no numbness. HEMATOLOGICAL: Denies any bleeding or petechiae. GENITOURINARY: Denies any burning micturition, frequency, or urgency. MUSCULOSKELETAL/RHEUMATOLOGICAL: Denies any joint pain, swelling, or any muscle pain. ENDOCRINE: Denies any polyuria or polydipsia. The rest of the 14-point review of systems is negative. PHYSICAL EXAMINATION: GENERAL: The patient is alert and oriented x3, not in any acute distress. Well developed, well nourished. HEENT: Pupils are round and equally reacting to light. EOMI. No scleral icterus. No conjunctival pallor. Normocephalic, atraumatic. No pharyngeal erythema. No thyromegaly. CARDIOVASCULAR: S1 and S2 present. No murmurs, rubs, or gallops. PULMONARY: Chest is clear to auscultation, no wheezing or crackles. ABDOMEN: Soft, nontender, nondistended, normoactive bowel sounds. No palpable organomegaly. MUSCULOSKELETAL: No joint swelling or deformity. EXTREMITIES: No cyanosis, clubbing, or pedal edema. NEUROLOGICAL: Gross neurological examination did not reveal any focal deficits. SKIN: Surgical site in the back looks clean with some redness which is expected. Assessment and plan -Bilateral pulmonary embolism: Continue on IV heparin, echocardiogram will be obtained cardiology will be consulted to evaluate for Ekos, troponins are negative. Pulmonary embolism is secondary to immobility secondary to back surgery. -Spinal fusion surgery complicated by infection for which patient is on daptomycin which will be resumed and patient will complete course -Hypertension: Patient blood pressure is low normal on hold off on antidepressant medications. -COPD without any acute exacerbation DVT prophylaxis: Patient is on anti-correlation as mentioned above Past Medical History Past Medical History: COPD, Hypertension History of Any Multi-Drug Resistant Organisms: MRSA Date of last positivie culture/infection: 05/12/23 MDRO Source:: Back Past Surgical History: Bowel Resection, Section, Cholecystectomy, Hysterectomy, Orthopedic Surgery Additional Past Surgical History / Comment(s): catarct surgery Past Anesthesia/Blood Transfusion Reactions: No Reported Reaction Past Psychological History: No Psychological Hx Reported Smoking Status: Former smoker Past Alcohol Use History: Occasional Past Drug Use History: None Reported Medications and Allergies Home Medications Medication Instructions Recorded Confirmed Type DAPTOmycin [Cubicin] 400 mg IV HS 08/28/23 08/28/23 History Docusate [Colace] 100 mg PO BID 08/28/23 08/28/23 History hydroCHLOROthiazide 12.5 mg PO DAILY 08/28/23 08/28/23 History lisinopriL [Zestril] 5 mg PO DAILY 08/28/23 08/28/23 History polyethylene glycoL 3350 [Miralax] 8.5 gm PO DAILY 08/28/23 08/28/23 History traMADol HCL 50 mg PO Q4H 08/28/23 08/28/23 History Allergies Allergy/AdvReac Type Severity Reaction Status Date / Time morphine Allergy Rash/Hives Verified 08/28/23 08:41 shellfish derived [Shellfish] Allergy Rash/Hives Verified 08/28/23 08:41 Physical Exam Vitals: Vital Signs Temp Pulse Resp BP Pulse Ox 08/28/23 07:45 98.5 F 89 18 109/70 99 08/28/23 05:00 93 18 115/75 97 08/28/23 02:53 84 19 111/73 98 08/28/23 00:13 98.9 F 78 18 115/57 100 Intake and Output 08/27/23 08/28/23 08/28/23 22:59 06:59 14:59 Other: Weight 90.718 kg Results CBC & Chem 7: 08/28/23 00:29 08/28/23 00:29 Labs: Abnormal Lab Results - Last 24 Hours (Table) 08/28/23 08/28/23 08/28/23 Range/Units 00:29 00:29 00:29 Hgb 11.1 L (11.4-16.0) gm/dL Hct 33.1 L (34.0-46.0) % D-Dimer 13.14 H (<0.60) mg/L FEU Sodium 136 L (137-145) mmol/L Glucose 147 H (74-99) mg/dL Urine Protein (Negative) Ur Leukocyte Esterase (Negative) Urine Bacteria (None) /hpf Hyaline Casts (0-2) /lpf Urine Mucus (None) /hpf 08/28/23 Range/Units 03:23 Hgb (11.4-16.0) gm/dL Hct (34.0-46.0) % D-Dimer (<0.60) mg/L FEU Sodium (137-145) mmol/L Glucose (74-99) mg/dL Urine Protein Trace H (Negative) Ur Leukocyte Esterase Trace H (Negative) Urine Bacteria Rare H (None) /hpf Hyaline Casts 8 H (0-2) /lpf Urine Mucus Occasional H (None) /hpf
[2023-08-28] MEDS: traMADol 50 MG TAB PO SCH ×3 (10:38→18:22)
[2023-08-28] MEDS: lisinopriL 5 MG TAB PO SCH (12:45)
--- NOTE | 2023-08-28 13:14 | US ---
EXAMINATION TYPE: US venous doppler duplex LE BI DATE OF EXAM: 08/28/2023 12:39 PM COMPARISON: None CLINICAL INDICATION: Female, 73 years old with history of PE, r/o DVT; Bilateral PE. No leg symptoms . Back surgery in Jul. On IV heparin. Portable exam. SIDE PERFORMED: Bilateral TECHNIQUE: The lower extremity deep venous system is examined utilizing real time linear array sonog aj with graded compression, doppler sonography and color-flow sonography. VESSELS IMAGED: Common Femoral Vein Deep Femoral Vein Greater Saphenous Vein * Femoral Vein Popliteal Vein Small Saphenous Vein * Proximal Calf Veins (* superficial vessels) Right Leg: Negative for DVT Left Leg: Negative for DVT IMPRESSION: 1. Bilateral lower extremity ultrasound negative for deep venous thrombosis at the time of imaging.
--- NOTE | 2023-08-28 13:23 | P.CRDCN ---
History of Present Illness History of present illness: HISTORY OF PRESENT ILLNESS: This is a 73-year-old female with a past medical history significant for hypertension and recent back surgery. 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 We have been asked to see the patient in consultation for pulmonary embolism. Patient examined at the bedside in the emergency room. Patient states she has been feeling "off" for the past couple days. She states that yesterday she began to have shortness of breath in the morning. She also reports having chest pain that is worsened with breathing. She presented to the emergency room for further evaluation. The patient was found to have acute pulmonary emboli and was started on IV heparin. The patient gives additional history that she had back surgery in May in [place] and has been fairly inactive since that time. She states she developed an infection and has required 3 additional back surgeries since May. She currently has a PICC line and is receiving IV antibiotics * EKG reveals sinus mechanism with no signs of acute ischemia * Chest x-ray: Negative for acute process * Chest CTA: Bilateral segmental and subsegmental pulmonary emboli. No CT evidence for right heart strain. * Venous Doppler: Negative for DVT bilaterally * Current home cardiac medications include lisinopril 5 mg daily and hydrochlorothiazide 12.5 mg daily. * Most recent echocardiogram obtained in September 2018 revealed ejection fraction 50-60%, borderline LVH, right ventricle is normal in size, right atrium is normal in size REVIEW OF SYSTEMS: At the time of my exam: CONSTITUTIONAL: Denies fever or chills. HEENT: Denies blurred vision, vision changes, or eye pain. Denies hemoptysis CARDIOVASCULAR: Denies chest pain. Denies orthopnea. Denies PND. Denies palpitations RESPIRATORY: Denies shortness of breath. GASTROINTESTINAL: Denies abdominal pain. Denies nausea or vomiting. HEMATOLOGIC: Denies bleeding disorders. GENITOURINARY: Denies any blood in urine. SKIN: Denies pruitis. Denies rash. PHYSICAL EXAM: VITAL SIGNS: Reviewed. GENERAL: Well-developed in no acute distress. HEENT: Head is normocephalic. Pupils are equal, round. Sclerae anicteric. Mucous membranes of the mouth are moist. Neck supple. No JVD or thyromegaly LUNGS: Respirations even and unlabored. Lungs essentially clear to auscultation bilaterally. HEART: Regular rate and rhythm. S1 and S2 heard. ABDOMEN: Soft. Nondistended. Nontender. EXTREMITIES: Normal range of motion. No clubbing or cyanosis. Peripheral pulses intact. No lower extremity edema NEUROLOGIC: Awake and alert. Oriented x 3. ASSESSMENT: Shortness of breath Bilateral pulmonary emboli Pleuritic chest pain, secondary to above History of hypertension History of back surgery in May 2023 with subsequent infection requiring 3 additional surgeries and IV antibiotics per patient PLAN: Obtain 2-D echo to assess cardiac structure and function Continue IV heparin Resume home dose of lisinopril. Hold hydrochlorothiazide at this time. Further recommendations pending patient's course Nurse practitioner note has been reviewed by physician. Signing provider agrees with the documented findings, assessment, and plan of care. Past Medical History Past Medical History: COPD, Hypertension History of Any Multi-Drug Resistant Organisms: MRSA Date of last positivie culture/infection: 05/12/23 MDRO Source:: Back Past Surgical History: Bowel Resection, Section, Cholecystectomy, Hysterectomy, Orthopedic Surgery Additional Past Surgical History / Comment(s): catarct surgery Past Anesthesia/Blood Transfusion Reactions: No Reported Reaction Past Psychological History: No Psychological Hx Reported Smoking Status: Former smoker Past Alcohol Use History: Occasional Past Drug Use History: None Reported Medications and Allergies Home Medications Medication Instructions Recorded Confirmed Type DAPTOmycin [Cubicin] 400 mg IV HS 08/28/23 08/28/23 History Docusate [Colace] 100 mg PO BID 08/28/23 08/28/23 History hydroCHLOROthiazide 12.5 mg PO DAILY 08/28/23 08/28/23 History lisinopriL [Zestril] 5 mg PO DAILY 08/28/23 08/28/23 History polyethylene glycoL 3350 [Miralax] 8.5 gm PO DAILY 08/28/23 08/28/23 History traMADol HCL 50 mg PO Q4H 08/28/23 08/28/23 History Allergies Allergy/AdvReac Type Severity Reaction Status Date / Time morphine Allergy Rash/Hives Verified 08/28/23 08:41 shellfish derived [Shellfish] Allergy Rash/Hives Verified 08/28/23 08:41 Physical Exam Vitals: Vital Signs Temp Pulse Resp BP Pulse Ox 08/28/23 10:28 97.9 F 98 20 143/73 98 08/28/23 07:45 98.5 F 89 18 109/70 99 08/28/23 05:00 93 18 115/75 97 08/28/23 02:53 84 19 111/73 98 08/28/23 00:13 98.9 F 78 18 115/57 100 Intake and Output 08/27/23 08/28/23 08/28/23 22:59 06:59 14:59 Other: Weight 90.718 kg Results 08/28/23 00:29 08/28/23 00:29 Cardiac Enzymes 08/28/23 08/28/23 08/28/23 Range/Units 00:29 00:29 03:50 AST 22 (14-36) U/L Troponin I <0.012 <0.012 (0.000-0.034) ng/mL Coagulation 08/28/23 Range/Units 00:29 PT 10.4 (10.0-12.5) sec APTT 24.7 (22.0-30.0) sec CBC 08/28/23 Range/Units 00:29 WBC 8.0 (3.8-10.6) k/uL RBC 3.84 (3.80-5.40) m/uL Hgb 11.1 L (11.4-16.0) gm/dL Hct 33.1 L (34.0-46.0) % Plt Count 238 (150-450) k/uL Comprehensive Metabolic Panel 08/28/23 Range/Units 00:29 Sodium 136 L (137-145) mmol/L Potassium 3.9 (3.5-5.1) mmol/L Chloride 101 (98-107) mmol/L Carbon Dioxide 24 (22-30) mmol/L BUN 14 (7-17) mg/dL Creatinine 0.82 (0.52-1.04) mg/dL Glucose 147 H (74-99) mg/dL Calcium 10.0 (8.4-10.2) mg/dL AST 22 (14-36) U/L ALT 15 (4-34) U/L Alkaline Phosphatase 87 (38-126) U/L Total Protein 7.1 (6.3-8.2) g/dL Albumin 4.0 (3.5-5.0) g/dL Current Medications Generic Name Dose Route Start Last Admin Trade Name Freq PRN Reason Stop Dose Admin Docusate Sodium 100 mg 10/17/23 21:00 Docusate 100 Mg Cap PO BID [facility] Heparin Sodium (Porcine) 0 unit 08/28/23 08:14 Heparin Sodium 1,000 Un/Ml (10ml Vl) IV PER PROTOCOL PRN Low PTT Protocol Heparin Sodium/Sodium Chloride 250 mls @ 16.329 mls/hr 08/28/23 08:15 08/28/23 08:46 25,000 unit/ Sodium Chloride IV 18 units/kg/hr .[id number] ROMANA 16.329 mls/hr Administration Protocol 18 UNITS/KG/HR Daptomycin 400 mg/ Sodium 50 mls @ 100 mls/hr 08/28/23 20:00 Chloride IVPB Q24H [facility] Naloxone HCl 0.2 mg 08/28/23 08:14 Naloxone 0.4 Mg/Ml 1 Ml Vial IV Q2M PRN Opioid Reversal Polyethylene Glycol 8.5 gm 08/28/23 10:09 Polyethylene Glycol 3350 17 Gm Powd.Pack PO DAILY PRN Constipation Tramadol HCl 50 mg 08/28/23 10:00 08/28/23 10:38 Tramadol 50 Mg Tab PO 50 mg Q4H [facility] Administration Intake and Output 08/27/23 08/28/23 08/28/23 22:59 06:59 14:59 Other: Weight 90.718 kg 08/28/23 00:29 08/28/23 00:29
[2023-08-28] MEDS: DOCUSATE 100 MG CAP PO SCH (20:46)
[2023-08-28] MEDS ORDERED: DAPTOmycin 500 MG VIAL IV SCH (21:00)
[2023-08-28 21:43] VITALS: RESP 16
[2023-08-29] MEDS: HEPARIN SOD,PORK IN 0.45% NACL 25,000 UNIT in 0.45% NACL 1 250ML.BAG IV SCH (03:31)
[2023-08-29 06:48] LABS: Basophils % (A) 0 %; Eosinophils # (A) 0.3 k/uL (0-0.7); Eosinophils % (A) 4 %; HCT 30.6 % (34.0-46.0); Lymphocytes # (A) 1.6 k/uL (1.0-4.8); Lymphocytes % (A) 22 %; MCH 28.6 pg (25.0-35.0); MCHC 32.6 g/dL (31.0-37.0); MCV 87.7 fL (80.0-100.0); Mean Platelet Volume 6.8; Monocytes # (A) 0.5 k/uL (0-1.0); Monocytes % (A) 7 %; Neutrophils # (A) 4.7 k/uL (1.3-7.7); Neutrophils % (A) 65 %; Platelet Count 226 k/uL (150-450); RBC 3.49 m/uL (3.80-5.40); WBC 7.2 k/uL (3.8-10.6)
[2023-08-29] MEDS: traMADol 50 MG TAB PO SCH ×4 (07:31→13:00)
[2023-08-29] MEDS: DOCUSATE 100 MG CAP PO SCH (08:40)
[2023-08-29] MEDS: lisinopriL 5 MG TAB PO SCH (08:41)
--- NOTE | 2023-08-29 10:29 | CA ---
Transthoracic Echo Report Name: Kelsie Winters Age: 73 Gender: F : 1950 Exam Date: 08/28/2023 11:14 Exam Location: [facility] Ht (in): 62 Wt (lb): 200 Ordering Physician: Myra Tim MD Attending/Referring Phys: [employer] Galen Burton Procedure CPT: Indications: Pulmonary Embolism Cardiac Hx: Technical Quality: Fair Contrast 1: Total Dose (mL): Contrast 2: Total Dose (mL): MEASUREMENTS (Male / Female) Normal Values 2D ECHO LV Diastolic Diameter PLAX 4.0 cm 4.2 - 5.9 / 3.9 - 5.3 cm LV Systolic Diameter PLAX 3.2 cm IVS Diastolic Thickness 1.2 cm 0.6 - 1.0 / 0.6 - 0.9 cm LVPW Diastolic Thickness 1.3 cm 0.6 - 1.0 / 0.6 - 0.9 cm LV Relative Wall Thickness 0.6 RV Internal Dim ED PLAX 3.8 cm LVOT Diameter 2.4 cm Aortic Root Diameter 3.2 cm LA Systolic Diameter LX 3.0 cm 3.0 - 4.0 / 2.7 - 3.8 cm LV Diastolic Volume MOD BP 45.3 cm??? 67 - 155 / 56 - 104 cm??? LV Systolic Volume MOD BP 13.2 cm??? - / 19 - 49 cm??? LV Ejection Fraction MOD BP 70.9 % >= 55 % LV Cardiac Index MOD BP 1358.4 cm???/min???m??? LV Diastolic Volume MOD 4C 45.1 cm??? LV Systolic Volume MOD 4C 10.7 cm??? LV Ejection Fraction MOD 4C 76.3 % LV Cardiac Index MOD 4C 1454.8 cm???/min???m??? LV Diastolic Length 4C 7.7 cm LV Systolic Length 4C 6.8 cm LV Diastolic Volume MOD 2C 44.2 cm??? LV Systolic Volume MOD 2C 15.3 cm??? LV Ejection Fraction MOD 2C 65.4 % LV Cardiac Index MOD 2C 1221.1 cm???/min???m??? LV Diastolic Length 2C 7.4 cm LV Systolic Length 2C 6.3 cm LA Volume 51.2 cm??? - 58 / 22 - 52 cm??? LA Volume Index 25.2 cm???/m??? 16 - 28 cm???/m??? DOPPLER AV Peak Velocity 135.4 cm/s AV Peak Gradient 7.3 mmHg LVOT Peak Velocity 97.6 cm/s LVOT Peak Gradient 3.8 mmHg LVOT Velocity Time Integral 20.3 cm LVOT Stroke Volume 89.6 cm??? LVOT Stroke Volume Index 46.9 ml/m??? LVOT Cardiac Index 3784.0 cm???/min???m??? AV Area Cont Eq pk 3.2 cm??? MV Peak Velocity 135.0 cm/s MV Peak Gradient 7.3 mmHg MV Mean Velocity 61.3 cm/s MV Mean Gradient 1.9 mmHg MV Velocity Time Integral 31.2 cm Mitral E Point Velocity 81.0 cm/s Mitral A Point Velocity 119.3 cm/s Mitral E to A Ratio 0.7 MV Deceleration Time 231.4 ms TR Peak Velocity 229.0 cm/s TR Peak Gradient 21.0 mmHg Right Ventricular Systolic Press 27.4 mmHg PV Peak Velocity 95.0 cm/s PV Peak Gradient 3.6 mmHg FINDINGS Left Ventricle Normal LV size and wall thickness. Left ventricular ejection fraction is estimated at 55-60_ %. Right Ventricle Normal right ventricular size. RVSP= 38mmHg. Right Atrium Normal right atrial size. Left Atrium Normal left atrial size. LA volume index= 27ml/m2 Mitral Valve Mild Posterior mitral annulus thickening. No mitral stenosis or regurgitation, Aortic Valve Trileaflet aortic valve. No aortic valve stenosis or regurgitation. Tricuspid Valve Structurally normal tricuspid valve. Mild TR. Pulmonic Valve Pulmonic valve not well visualized. No pulmonic regurgitation. Pericardium Normal pericardium. Aorta Normal size aortic root. CONCLUSIONS Preserved LV size and systolic function Previewed by: Dr. Devendra Adams MD (Electronically Signed) Final Date: 29 August 2023 10:27
[2023-08-29] MEDS ORDERED: Apixaban Initiation Dose--VTE 5 MG TAB PO SCH (11:15)
[2023-08-29 12:04] VITALS: TEMP 98.6
--- NOTE | 2023-08-29 13:14 | P.PN ---
Subjective HISTORY OF PRESENT ILLNESS: This is a 73-year-old female with a past medical history significant for hypertension and recent back surgery. 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 We have been asked to see the patient in consultation for pulmonary embolism. Patient examined at the bedside in the emergency room. Patient states she has been feeling "off" for the past couple days. She states that yesterday she began to have shortness of breath in the morning. She also reports having chest pain that is worsened with breathing. She presented to the emergency room for further evaluation. The patient was found to have acute pulmonary emboli and was started on IV heparin. The patient gives additional history that she had back surgery in May in [place] and has been fairly inactive since that time. She states she developed an infection and has required 3 additional back surgeries since May. She currently has a PICC line and is receiving IV antibiotics * EKG reveals sinus mechanism with no signs of acute ischemia * Chest x-ray: Negative for acute process * Chest CTA: Bilateral segmental and subsegmental pulmonary emboli. No CT evidence for right heart strain. * Venous Doppler: Negative for DVT bilaterally * Current home cardiac medications include lisinopril 5 mg daily and hydrochlorothiazide 12.5 mg daily. * Most recent echocardiogram obtained in September 2018 revealed ejection fraction 50-60%, borderline LVH, right ventricle is normal in size, right atrium is normal in size 08/29/2023 Patient examined this morning at the bedside. Patient denies chest pain or pressure. She denies shortness of breath rate remains on IV heparin. Echocardiogram performed revealing preserved LV systolic function with no evidence of right heart strain. PHYSICAL EXAM: VITAL SIGNS: Reviewed. GENERAL: Well-developed in no acute distress. HEENT: Head is normocephalic. Pupils are equal, round. Sclerae anicteric. Mucous membranes of the mouth are moist. Neck supple. No JVD or thyromegaly LUNGS: Respirations even and unlabored. Lungs essentially clear to auscultation bilaterally. HEART: Regular rate and rhythm. S1 and S2 heard. ABDOMEN: Soft. Nondistended. Nontender. EXTREMITIES: Normal range of motion. No clubbing or cyanosis. Peripheral pulses intact. No lower extremity edema NEUROLOGIC: Awake and alert. Oriented x 3. ASSESSMENT: Shortness of breath Bilateral pulmonary emboli with no evidence of right heart strain Pleuritic chest pain, secondary to above History of hypertension History of back surgery in May 2023 with subsequent infection requiring 3 additional surgeries and IV antibiotics per patient PLAN: Discontinue IV heparin Begin Eliquis per PE protocol Patient may be discharged home today from a cardiac standpoint Further recommendations pending patient's course Nurse practitioner note has been reviewed by physician. Signing provider agrees with the documented findings, assessment, and plan of care. Objective - Vital Signs Vital signs: Vital Signs Temp 98.6 F 08/29/23 11:58 Pulse 94 08/29/23 11:58 Resp 16 08/29/23 11:58 BP 93/63 08/29/23 11:58 Pulse Ox 96 08/29/23 11:58 FiO2 Intake & Output 08/28/23 08/29/23 08/29/23 18:59 06:59 18:59 Intake Total 550.000 240 Balance 550.000 240 Weight 90.718 kg Intake: Intake, IV Titration 300.000 Amount DAPTOmycin 400 mg In 50 Sodium Chloride 0.9% 50 ml @ 100 mls/hr IVPB Q24H [facility]ANA Rx#:[id number] Heparin Sod,Pork in 0.45% 250.000 NaCl 25,000 unit In 0.45 % NaCl 1 250ml.bag @ 18 UNITS/KG/HR 16.329 mls/hr IV .[id number] ROMANA Rx#: [id number] Oral 250 240 Other: # Voids 1 - Labs CBC & Chem 7: 08/29/23 05:26 08/28/23 00:29 Labs: Abnormal Lab Results - Last 24 Hours (Table) 08/28/23 08/28/23 08/29/23 Range/Units 13:29 18:49 05:26 RBC 3.49 L (3.80-5.40) m/uL Hgb 10.0 L (11.4-16.0) gm/dL Hct 30.6 L (34.0-46.0) % APTT 92.5 H 87.8 H (22.0-30.0) sec 08/29/23 Range/Units 05:26 RBC (3.80-5.40) m/uL Hgb (11.4-16.0) gm/dL Hct (34.0-46.0) % APTT 69.9 H (22.0-30.0) sec
[2023-08-29 15:42] VITALS: BP 95/62; PULSE 87
--- NOTE | 2023-09-01 07:38 | P.DS ---
Providers Date of admission: 08/28/23 08:14 Expected date of discharge: 08/29/23 Attending physician: Phi Kelsey MD Consults: 08/28/23 10:21 Consult Physician Routine Consulting Provider: Han Villa Consult Reason/Comments: Pulmonary embolism Do you want consulting provider notified?: Yes Primary care physician: Tracie Centeno Hospital Course: Final diagnosis -Bilateral pulmonary embolism: Negative for heart strain on echo. Pulmonary embolism is secondary to immobility secondary to back surgery. -Spinal fusion surgery complicated by infection for which patient is on daptomycin palpation -Hypertension -COPD without any acute exacerbation -Obesity with BMI 36.6 -DVT prophylaxis -GI prophylaxis -Full code Discharge disposition Patient is being discharged in a stable condition with guarded prognosis to home with home care. Patient will follow-up with Dr. Centeno in the outpatient setting upon discharge. Patient is to continue with eliquis 10 mg twice daily for the next 1 week and then titrate down to 5 mg twice daily thereafter. Patient to follow-up with cardiology as well as pulmonary outpatient as scheduled. Total time taken is greater than 35 minutes. Hospital course This is a 73-year-old female who was recently admitted with shortness of breath and found to have bilateral pulmonary embolism. Patient underwent 2-D echo and evaluated by cardiology started on anticoagulation and heparin drip discontinued. No evidence of right heart strain noted and patient will continue on oral anticoagulant as mentioned above. Patient has been cleared by consultations for discharge. Patient will continue daptomycin and close outpatient follow-up with orthopedics as previously scheduled. Please refer to other consultation notes for further HPI. Anticoagulation cost was verified and $40 per month. Currently no reports of chest pain, shortness of breath, or palpitations. Patient is afebrile. No reports of nausea or vomiting and patient is tolerating diet. Patient will be discharged home today. Physical exam: Gen: This is a 73-year-old female who is awake, alert and oriented 3, well- developed, well-nourished, obese HEENT: Head is atraumatic, normocephalic. Pupils equal, round. Sclerae is anicteric. NECK: Supple. No JVD. No lymphadenopathy. No thyromegaly. LUNGS: Clear to auscultation. No wheezes or rhonchi. No intercostal retr actions. HEART: Regular rate and rhythm. No murmur. ABDOMEN: Soft. Bowel sounds are present. No masses. No tenderness. EXTREMITIES: No pedal edema. No calf tenderness. NEUROLOGICAL: Patient is awake, alert and oriented x3. Cranial nerves 2 through 12 are grossly intact. Please refer to medication reconciliation sheet for a list of medications. The impression and plan of care has been dictated by Zahraa Clay, Nurse Practitioner as directed. Dr. Meeta MD I have performed a history and examination and MDM of this patient, discussed the same with the dictator, and agree with the dictator's assessment and plan as written ,documented as a scribe. Based on total visit time, I have performed more than 50% of the visit. Patient Condition at Discharge: Stable Plan - Discharge Summary Discharge Rx Participant: No New Discharge Prescriptions: New Apixaban [Eliquis Starter Pack (for VTE)] 5 - 10 mg PO DIRECTED 30 Days #1 each Continue polyethylene glycoL 3350 [Miralax] 8.5 gm PO DAILY Docusate [Colace] 100 mg PO BID traMADol HCL 50 mg PO Q4H DAPTOmycin [Cubicin] 400 mg IV HS Discontinued lisinopriL [Zestril] 5 mg PO DAILY hydroCHLOROthiazide 12.5 mg PO DAILY Discharge Medication List DAPTOmycin [Cubicin] 400 mg IV HS 08/28/23 [History] Docusate [Colace] 100 mg PO BID 08/28/23 [History] polyethylene glycoL 3350 [Miralax] 8.5 gm PO DAILY 08/28/23 [History] traMADol HCL 50 mg PO Q4H 08/28/23 [History] Apixaban [Eliquis Starter Pack (for VTE)] 5 - 10 mg PO DIRECTED 30 Days #1 each 08/29/23 [Rx] Follow up Appointment(s)/Referral(s): Han Villa MD [STAFF PHYSICIAN] - 3 Weeks (Office will call you with appointment time. ) Tracie Centeno MD [Primary Care Provider] - 09/04/23 1:00 pm [facility], [NON-STAFF] - Infusion Services,[facility] [REFERRING] - Patient Instructions/Handouts: Pulmonary Embolism (DC) Activity/Diet/Wound Care/Special Instructions: Activity Limited until follow-up Follow-up primary care provider on discharge Follow-up with cardiology outpatient Continue taking eliquis 10 mg twice daily for 1 week and then transitioned down to 5 mg twice daily thereafter Discharge Disposition: HOME WITH HOME HEALTH SERVICES
== END 2023-08-29 17:23 | disposition home health service (06) ==
LOC: EC 00:06 → 3SCARD 08:14 → INTOOBSV 08:14 → 3SCARD 10:17 → UNDODISIN 08-29 17:23
PROVIDERS: ADMIT Internal Medicine; ATTEND Internal Medicine
DX: I26.99 Other pulmonary embolism without acute cor pulmonale (principal); J44.9 Chronic obstructive pulmonary disease, unspecified; I10 Essential (primary) hypertension; E66.9 Obesity, unspecified; Z68.36 Body mass index [BMI] 36.0-36.9, adult; Z11.52 Encounter for screening for COVID-19; Z79.2 Long term (current) use of antibiotics; Z79.899 Other long term (current) drug therapy; Z88.5 Allergy status to narcotic agent; Z91.013 Allergy to seafood; Z86.14 Personal history of Methicillin resistant Staphylococcus aureus infection; Z90.710 Acquired absence of both cervix and uterus; Z90.49 Acquired absence of other specified parts of digestive tract; Z98.891 History of uterine scar from previous surgery; Z87.891 Personal history of nicotine dependence; Z98.1 Arthrodesis status; Z98.49 Cataract extraction status, unspecified eye; Z98.890 Other specified postprocedural states
CPT/HCPCS: 96366 ×2; 96376; 96365; 99291; 36415; 93005; 93306; 97166; 85379; 83880; 80053; 84484; 85025 ×2; 85610; 85730 ×2; 81001; 87636; 71046; 93970; 71275; G0378 ×2; J1644 ×3; Q9967; J0878; 96374

== ENCOUNTER → 2024-06-12 | Outpatient (CLI) | payer MEDICARE ==
--- NOTE | 2024-06-13 13:26 | MR ---
EXAMINATION TYPE: MR lumbar spine wo con DATE OF EXAM: 06/12/2024 5:02 PM CLINICAL INDICATION:Female, 74 years old with history of M54.6 PAIN IN THORACIC SPINE Z98.1,M48.062,M 51.36; PHH, Chronic low back pain, Hx Lumbar fusions COMPARISON: 03/13/2023 TECHNIQUE: Multi planar, multi sequence imaging was performed utilizing: T1-weighted, T2-weighted, a nd turbo inversion recovery imaging of the lumbar spine. IV Contrast: cc . (None if empty) FINDINGS: Alignment: The lumbar vertebral bodies have preserved heights and straightening of the alignment. Cord: The conus medullaris and the distal spinal cord appear unremarkable with regards to their signa l intensity and morphology. Bones/Discs: Severe degeneration changes of this lumbar spine with osteophyte formation disc space na rrowing and Schmorl's nodes. There is fixation changes at L3-L4 and L5 with hardware susceptibility p resent. T12-L1: No evidence of significant spinal canal stenosis or neural foraminal stenosis. L1-L2: Disc bulge and facet joint arthropathy result in mild spinal canal and moderate bilateral neur al foraminal stenosis. L2-L3: Disc bulge and facet joint arthropathy result in mild spinal canal and moderate to severe righ t and mild left neural foraminal stenosis. L3-L4: Susceptibility artifact limits evaluation at this level. Spinal canal is patent. There is mode rate to severe neural foraminal stenosis bilaterally.. L4-L5: Susceptibility artifact limits evaluation at this level. Spinal canal is patent. There is mode rate to severe neural foraminal stenosis bilaterally.. L5-S1: Susceptibility artifact limits evaluation at this level. Spinal canal is patent. This moderate right and severe left neural foraminal stenosis. No significant spinal canal or neural foraminal stenosis in the remainder of the visualized levels. Other findings: None. IMPRESSION: 1. Overall findings improved spinal canal stenosis from prior with fixation changes no foraminal perico nosis remains similar. 2. No definitive evidence of disc herniation or significant spinal canal stenosis. 3. Moderate to severe disc degeneration with associated osteoarthritic changes. 4. Neural foraminal stenosis worse in the lower lumbar spine at L5-S1 with severe left, moderate to severe bilateral L4-L5.
== END | disposition home or self-care (01) ==
LOC: RADMRIMAIN 16:06
PROVIDERS: ATTEND Orthopaedic Surgery
DX: M99.73 Connective tissue and disc stenosis of intervertebral foramina of lumbar region (principal); M47.816 Spondylosis without myelopathy or radiculopathy, lumbar region; M43.16 Spondylolisthesis, lumbar region; M48.062 Spinal stenosis, lumbar region with neurogenic claudication; M51.36 Other intervertebral disc degeneration, lumbar region; Z98.1 Arthrodesis status
CPT/HCPCS: 72148

== ENCOUNTER → 2024-06-20 | Outpatient (CLI) | payer MEDICARE ==
--- NOTE | 2024-07-09 13:45 | CT ---
Patient: Kelsie Winters J Ordering Physician: Unknown, Unknown ID: [id number] Phone, Pager: Phone: N/A Pager: N/A : 1950 Age/Gender: 74Y, F Primary Location: N/A Procedure: CT LSPINE Study Cristhian e: 06/20/2024 8:38:00 AM EXAMINATION TYPE: CT lumbar spine wo con CT DLP: 1255 mGycm, Automated exposure control for dose reduction was used. DATE OF EXAM: 07/02/2024 8:52 AM COMPARISON: 06/12/2024. CLINICAL INDICATION: Low back pain TECHNIQUE: Multiple axial images were obtained from the midportion of T11 through the sacroiliac rene nts. Soft tissue and bone windows in coronal and sagittal planes were obtained and reviewed. Contrast used: mL of , (None, if empty). Oral contrast used: (None, if empty). FINDINGS: Alignment: There are 5 lumbar type vertebral bodies with grade 1 anterolisthesis of L3 on L4. Bone: Multilevel degeneration changes throughout the spine with osteophyte formation, disc space vinay rowing, Schmorl's nodes, thickness phenomenon and facet arthropathy. Fixation hardware L3-L4 and L5 a ppears intact. Laminectomy changes at these levels. Discs: T12-L1: No spinal canal or neural foraminal stenosis is identified. L1-L2: No spinal canal or neural foraminal stenosis is identified. L2-L3: No spinal canal or neural foraminal stenosis is identified. L3-L4: Grade 1 anterolisthesis. Facet joint arthropathy and disc bulging result with mild spinal jad l stenosis and moderate to severe bilateral neural foraminal stenosis. L4-L5: Facet joint arthropathy and disc bulging result with mild spinal canal stenosis and mild and m oderate to severe bilateral neural foraminal stenosis. L5-S1: Facet joint arthropathy and disc bulging result with mild to moderate spinal canal stenosis an d severe left and moderate right neural foraminal stenosis. Other: The gallbladder is surgically absent. Atherosclerosis of the arterial vasculature. Scattered c olonic diverticula. IMPRESSION: 1. No evidence for spinal fracture. 2. Postsurgical changes with hardware intact. 3. Severe degeneration changes of the spine. Neural foraminal stenosis worse at L5-S1 with severe lef t, L4-L5 and L3-L4 with moderate to severe bilateral.
--- NOTE | 2024-07-15 09:30 | MM ---
Reason for Exam: Screening (asymptomatic). Last mammogram was performed 2 year(s) and 0 month(s) ago. Patient History: Menarche at age 12. First Full-Term at age 21. Left ovary removed at age 42. Right ovary removed at age 42. Hysterectomy at age 42. Postmenopausal. Patient has history of breast feeding. Other cancer. Hormonal Contraceptives, from age 22 until age 30. Core Biopsy on the Right side. Maternal cousin had breast cancer. Risk Values: Carissa 5 year model risk: 1.9%. NCI Lifetime model risk: 4.0%. Prior Study Comparison: 09/25/2019 Bilateral Screening Mammogram, [facility]. 06/01/2021 Bilateral Screening Mammogram, [facility]. 06/28/2022 Bilateral MG 3D screening mammo w/cad, [facility]. Tissue Density: The breasts are heterogeneously dense, which may obscure small masses. Findings: Analyzed By CAD. Right breast: There is no suspicious group of microcalcifications or new suspicious mass. Left breast: There is no suspicious group of microcalcifications or new suspicious mass. Overall Assessment: Negative, BI-RAD 1 Management: Screening Mammogram of both breasts in [address] [facility] will attempt to contact patient to return for supplemental views and ultrasound if indicated. Patient should continue monthly self-breast exams. A clinical breast exam by your physician is recommended on an annual basis. This exam should not preclude additional follow-up of suspicious palpable abnormalities. Note on Carissa scores and lifetime risk: 1. A Carissa score greater than 3% is considered moderate risk. If this is the case, consider specialist referral to assess eligibility for a risk reducing agent. 2. If overall lifetime risk for the development of breast cancer is 20% or higher, the patient may qualify for future screening with alternating mammogram and breast MRI. Electronically signed and approved by: Jamison Mo DO
== END | disposition home or self-care (01) ==
LOC: RADMAMWWP 12:00
PROVIDERS: ATTEND Orthopaedic Surgery
DX: Z12.31 Encounter for screening mammogram for malignant neoplasm of breast (principal); Z78.0 Asymptomatic menopausal state; Z80.3 Family history of malignant neoplasm of breast; R92.333 Mammographic heterogeneous density, bilateral breasts
CPT/HCPCS: 72131; 77063; 77067

== ENCOUNTER → 2024-06-20 | Outpatient (CLI) | payer MEDICARE ==
--- NOTE | 2024-07-21 14:05 | MR ---
Site ID synapse default Patient Kelsie Winters J ID [id number] Age/Gender: 74Y, F Order # N/A Procedure MR THORACIC SPINE wo con Date 06/20/2024 6:39:11 AM INDICATION: Patient age: Female; 74 year old; Reason for study: Mid back pain COMPARISON: MRI lumbar spine 06/12/2024, 03/13/23, CT chest 08/28/2023, MR cervical spine 03/09/2023. TECHNIQUE: Multi planar, multi sequence imaging was performed utilizing: T1-weighted, T2-weighted, an d turbo inversion recovery imaging of the thoracic spine. The patient was not given Gadolinium. FINDINGS: The thoracic vertebral bodies have preserved heights. Mild dextrocurvature of the upper thoracic spin e with apex at T4. The osseous structure have normal signal intensity. Multilevel small Schmorl's nod es. Partial visualization of lumbar surgical change. Multilevel anterior osteophytosis. Thoracic spin al cord appears unremarkable. Small left paracentral disc protrusion at T10-T11 with mild narrowing of the central canal. Small left paracentral disc protrusion at T9-T10 with minimal narrowing of the central canal. Broad-based disc bulge at T11-T12 with mild narrowing of the central canal. Mild bilateral neural foraminal stenosis at T10-T11 secondary to facet arthropathy. No other signific ant neural foraminal stenosis. Multilevel disc desiccation. Please refer to recent MRI lumbar spine for findings. IMPRESSION: Mild to moderate multilevel degenerative disc disease with small disc protrusions at T9-T10 and T10-T 11 without significant central canal stenosis.
== END | disposition home or self-care (01) ==
LOC: RADCTMAIN 07:06
PROVIDERS: ATTEND Orthopaedic Surgery
DX: Z98.1 Arthrodesis status (principal); M48.062 Spinal stenosis, lumbar region with neurogenic claudication; M43.16 Spondylolisthesis, lumbar region; M51.35 Other intervertebral disc degeneration, thoracolumbar region
CPT/HCPCS: 72146

== ENCOUNTER → 2024-08-20 | Outpatient (CLI) | payer MEDICARE ==
[2024-08-20 10:55] VITALS: BP 163/75; PULSE 88; RESP 16; TEMP 98.2
--- NOTE | 2024-08-20 11:22 | P.PROGSL ---
Subjective DATE: 08/20/2024 FOLLOW UP VISIT. Patient with obstructive sleep apnea hypopnea syndrome return to sleep center for follow-up visit. Information from previous visit have been reviewed. Patient is using PAP equipment every night for the whole night, getting PAP supplies in time. The patient does not have significant problems with the mask, PAP unit and humidification. Marty sleepiness scale is 5, which is normal. I checked information from PAP unit. PAP unit pressure 5-13, average 10 cm H2O. Usage is 95% for more then 4 hours, average 6.4 hours per night. Leak is 7 l/m, which is in acceptable range. Apnea Hypopnea Index is 5.5, which is borderline normal. MEDICATIONS have been reviewed, please see below. During physical exam: GENERAL: A pleasant patient without any distress. VITAL SIGNS: Please see below, weight is 223 lbs. HEENT: PERRLA, EOMI.low position of soft palate, Mallapati 4 . NECK: Supple. No JVD. LUNGS: Clear to percussion and to auscultation. Good air exchange. No wheezing or rhonchi. HEART: S1, S2 regular. ABDOMEN: Soft and nontender. Obese EXTREMITIES: No clubbing or cyanosis. BOTTOM FINISHER: Awake, alert, and oriented x3. No focal deficit. Impressions: 1. Obstructive sleep apnea-hypopnea syndrome. Patient demonstrated great compliance with treatment, benefiting from treatment. 2. Obesity, BMI 40.7. 3. Hypertension. 4. Status post back surgeries in 2022. 5. Status post colon resection for diverticulitis. 6. Status post left knee arthroscopic surgery. 7. Status post hysterectomy. 8. Status post cholecystectomy. Plan: 1. Continue using PAP equipment every night for the whole night. 2. Sleep hygiene with regular time in bed for at least 7.5-8 hours 3. PAP unit should stay lower then position of the head. 4. Advised patient to remove all remaining water from humidifier canister daily and make it dry after each usage. Refill canister with fresh distilled water before each usage. 5. Watching and losing weight. 6. Precautions related to driving. No driving if feel any sleepiness. 7. I will maintain prescription for PAP supplies including mask, tube, filters. 8. Follow up visit in 8 months or earlier if patient has any problems. Thank you very much for allowing me to participate in the management of your patient. Bharath Resendiz MD, PhD, FAASM. Diplomat of [employer], Sleep Medicine Board by [employer] Analyst of [facility] [place] cc: Tracie Centeno MD Objective - Vital Signs Vital Signs: Vital Signs Temp 98.2 F 08/20/24 10:54 Pulse 88 08/20/24 10:54 Resp 16 08/20/24 10:54 BP 163/75 08/20/24 10:54 Pulse Ox 96 08/20/24 10:54 FiO2 Intake & Output 08/19/24 08/20/24 08/20/24 18:59 06:59 18:59 Weight 101.151 kg Home Medications: Home Medications Medication Instructions Recorded Confirmed Type DAPTOmycin [Cubicin] 400 mg IV HS 08/28/23 08/28/23 History Docusate [Colace] 100 mg PO BID 08/28/23 08/20/24 History polyethylene glycoL 3350 [Miralax] 8.5 gm PO DAILY 08/28/23 08/28/23 History traMADol HCL 50 mg PO Q4H 08/28/23 08/20/24 History Apixaban [Eliquis Starter Pack 5 - 10 mg PO DIRECTED 30 Days 08/29/23 Rx (for VTE)] #1 each Ascorbic Acid [Vitamin C] 500 mg PO DAILY 08/20/24 08/20/24 History
== END | disposition home or self-care (01) ==
LOC: 3 N SLEEP 10:25
PROVIDERS: ATTEND Internal Medicine
CPT/HCPCS: 99212